=== PATIENT | female | born 1940 | race Caucasian/White ===

== ENCOUNTER → 2016-05-11 | Outpatient (CLI) | payer OTHER ==
--- NOTE | 2016-05-11 17:02 | MR ---
MRI of the Lumbar Spine (Without Contrast) at 1023 hours Clinical Indications: Low back pain. M54.5. Technique: Sagittal and axial T1 and T2 and sagittal STIR MR sequences of the lumbar spine, without contrast. Axial imaging from T12-S1. Findings: Lumbar vertebral bodies are of normal height, without compression fractures. Conus medull asya appears normal and ends at L2. Moderate levoscoliosis. T10-T11: Sagittal images demonstrate moderate degenerative disk disease and disk bulge resulting in mild central canal stenosis and mild right neural foraminal stenosis. T11-T12: Sagittal images demonstrate no central canal stenosis. T12-L1: Mild degenerative disk disease and mild disk bulge, with mild bilateral facet arthropathy. No central canal or neural foraminal stenosis. L1-L2: Moderate degenerative disk disease, with central 3-mm disk herniation and mild bilateral face t arthropathy, resulting in mild central canal stenosis, without neural foraminal stenosis. L2-L3: A 3-mm central disk herniation, protrusion, and mild bilateral facet arthropathy, without becky tral canal or neural foraminal stenosis. L3-L4: Moderate degenerative disk disease, moderate bilateral facet arthropathy, and circumferential disk bulge resulting in mild to moderate right neural foraminal stenosis and mild central canal sten osis. L4-L5: Severe bilateral facet arthropathy, mild degenerative disk disease, disk bulge, and degenerat ted anterolisthesis resulting in moderate central canal stenosis and mild bilateral neural foraminal stenosis. L5-S1: Mild degenerative disk disease and severe bilateral facet arthropathy resulting in moderate t o severe left neural foraminal stenosis, without central canal stenosis. Impressions 1. L4-L5: Moderate central canal stenosis secondary to severe bilateral facet arthropathy, mild deg enerative disk disease, disk bulge, and degenerative anterolisthesis. 2. Moderate levoscoliosis. 3. Please see above findings at specific disk levels.
== END ==
LOC: FIMAGING 10:03
PROVIDERS: ATTEND Physical Medicine & Rehabilitation
DX: M48.06 Spinal stenosis, lumbar region (principal); M51.36 Other intervertebral disc degeneration, lumbar region; M43.16 Spondylolisthesis, lumbar region; M41.86 Other forms of scoliosis, lumbar region

== ENCOUNTER → 2016-05-11 | Outpatient (CLI) | payer OTHER ==
--- NOTE | 2016-05-11 13:21 | DX ---
PA and lateral chest. May 11, 2016. Clinical History: Fever and fatigue. Cough. Comparison Study: February 04, 2016.. Findings: Interval resolution of small bilateral pleural effusions from prior study. No focal infiltr ate or pleural effusion currently. Cardiac silhouette is normal.. Marked lower thoracic dextroscoliosis. Healed fracture of the lateral aspect of the right seventh rib , unchanged.. Impression: Interval resolution of small bilateral pleural effusions. Negative chest.
== END ==
LOC: BMCIMAGING 12:32
PROVIDERS: ATTEND Internal Medicine
DX: J90 Pleural effusion, not elsewhere classified (principal); R50.9 Fever, unspecified; R53.83 Other fatigue

== ENCOUNTER → 2016-06-10 | Outpatient (CLI) | payer OTHER | LOC: FIMAGING 15:49 | PROVIDERS: ATTEND Internal Medicine Rheumatology | DX: R51 Headache (principal); R50.9 Fever, unspecified; R09.89 Other specified symptoms and signs involving the circulatory and respiratory systems ==

== ENCOUNTER 2016-07-18 11:59 | Emergency (ER) | payer OTHER ==
--- NOTE | 2016-07-18 12:24 | CPEKG ---
Heart Rate: 73 RR Interval: 822 P-R Interval: 148 QRSD Interval: 74 QT Interval: 428 QTC Interval: 472 P [place]: 57 QRS [place]: 16 T Wave [place]: 67 EKG Severity - BORDERLINE ECG - EKG Impression: SINUS RHYTHM EKG Impression: BORDERLINE T WAVE ABNORMALITIES Electronically Signed By: William Louis 18-Jul-2016 12:53:07
--- NOTE | 2016-07-18 12:40 | EDPHY ---
H & P Time Seen by Provider: 07/18/16 12:39 HPI/ROS: CHIEF COMPLAINT: Left-sided chest pain HISTORY OF PRESENT ILLNESS: This 75-year-old woman presents with left-sided chest discomfort since Monday evening almost 48 hours ago. She describes it as being constant and worse with a deep breath and worse with swallowing. It is not associated with cough or shortness of breath or syncope. Does not radiate. Symptoms mild and presents for evaluation since it is "not going away. " REVIEW OF SYSTEMS: Eye: no change in vision ENT: no sore throat, runny nose for several months Cardiac: HPI Pulmonary: no cough or SOB Abdomen: no vomiting, diarrhea, abdominal pain Musculoskeletal: no back pain Skin: Has a couple areas of ring warm diagnosed recently Neuro: no headache Constitutional: no fever : no urinary symptoms A comprehensive 10 point review of systems is otherwise negative aside from elements mentioned in the history of present illness. No recent travel or immobilization. PAST MEDICAL HISTORY: Includes rheumatoid arthritis and diet-controlled diabetes. TIA in 2006. Hernia surgery. Gastroesophageal reflux. Social history: Nonsmoker, General Appearance: Alert and conversant, cooperative. Eyes: No scleral icterus. ENT, Mouth: Normal mucous membranes. Respiratory: Normal respiratory effort, breath sounds equal, lungs are clear to auscultation. Cardiovascular: Regular rate and rhythm. Gastrointestinal: Abdomen is soft and non tender. Neurological: Alert and oriented x3. Normally conversant. Face symmetric, normal movement and sensation in all extremities. Skin: No petechiae or purpura Musculoskeletal: Trace peripheral edema which is chronic since her rituximab injections but no calf tenderness. Psychiatric: Not agitated. Emergency Department course/MDM: Much more likely gastrointestinal given her worsening with swallowing. Think that acute coronary syndrome is less likely, especially with negative troponin after 2 days of symptoms. 1415: Re-evaluated. Symptoms better. I do not think it is likely that she has an acute emergent medical condition at this time. Patient states she is comfortable with discharge and symptomatic management. Smoking Status: Former smoker Constitutional: Initial Vital Signs Temperature (C) 36.6 C 07/18/16 12:00 Heart Rate 76 07/18/16 12:00 Respiratory Rate 18 07/18/16 12:00 Blood Pressure 133/80 H 07/18/16 12:00 O2 Sat (%) 95 07/18/16 12:00 O2 Delivery Mode Room Air O2 (L/minute) 2 Allergies/Adverse Reactions: acetaminophen [From Vicodin] Allergy (Intermediate, Verified 07/18/16 12:01) Rash codeine [Codeine] Allergy (Intermediate, Verified 07/18/16 12:01) Rash hydrocodone [Hydrocodone] Allergy (Intermediate, Verified 07/18/16 12:01) Itching hydrocodone bitartrate [From Vicodin] Allergy (Intermediate, Verified 07/18/16 12:01) Rash latex [Latex] Allergy (Intermediate, Verified 07/18/16 12:01) Hives levofloxacin [From Levaquin] Allergy (Intermediate, Verified 07/18/16 12:01) Other-Enter Comments nitrofurantoin [From Macrobid] Allergy (Intermediate, Verified 07/18/16 12:01) Other-Enter Comments nitrofurantoin macrocrystalline [From Macrobid] Allergy (Intermediate, Verified 07/18/16 12:01) Other-Enter Comments oxycodone HCl [From Percocet] Allergy (Intermediate, Verified 07/18/16 12:01) Itching propoxyphene napsylate [From Darvocet-N 100] Allergy (Intermediate, Verified 12:01) Itching clarithromycin Allergy (Mild, Verified 07/18/16 12:01) Other-Enter Comments Sulfa (Sulfonamide Antibiotics) Allergy (Unknown, Verified 07/18/16 12:01) Unknown GLUTEN Allergy (Intermediate, Uncoded 08/09/11 12:08) Other-Enter Comments ISONIAZIDE Allergy (Intermediate, Uncoded 08/09/11 12:08) Other-Enter Comments MILK PROTEIN Allergy (Intermediate, Uncoded 08/09/11 12:02) Other-Enter Comments HAYFEVER Allergy (Mild, Uncoded 08/09/11 12:08) Other-Enter Comments Home Medications: Medication Instructions Recorded DULoxetine [Cymbalta 60 MG (*)] 60 mg PO DAILY 08/12/11 ESOMEPRAZOLE MAG TRIHYDRATE 40 mg PO DAILY 08/12/11 [NEXIUM] ESTRADIOL [VAGIFEM] 25 mcg VG .3X/WEEK 08/12/11 Simvastatin [Zocor 10 mg] 10 mg PO DAILY 08/12/11 Methotrexate Sodium [Methotrexate] 10 mg PO Q7D 10/17/14 Aspirin EC [Aspirin EC 81 mg (*)] 81 mg PO DAILY 01/29/16 Leflunomide [Arava 20 mg (*)] 20 mg PO DAILY 01/29/16 riTUXimab [Rituxan 500mg (*)] 0 mg IV 07/18/16 traMADol [Ultram 50 mg (*)] 50 mg PO Q4 07/18/16 Medical Decision Making - Diagnostics EKG Interpretation: 12-lead EKG interpreted by me; official reading is in trace master. My interpretation is sinus rhythm, rate 73, nonspecific T-wave flattening. Imaging: Chest x-ray viewed independently by myself shows scoliosis but no acute changes from previous. Differential Diagnosis: Differential diagnosis considered for chest pain including but not limited to myocardial ischemia, aortic dissection, pericarditis, pulmonary embolus, chest wall pain, pleural inflammation and pulmonary infectious causes. - Data Points Laboratory Results: Laboratory Results 07/18/16 12:27 07/18/16 12:27 07/18/16 07/18/16 07/18/16 12:27 12: 12:25 WBC 5.41 10^3/uL 10^3/uL (3.80-9.50) RBC 4.28 10^6/uL 10^6/uL (4.18-5.33) Hgb 13.4 g/dL g/dL (12.6-16.3) Hct 41.2 % % (38.0-47.0) MCV 96.3 fL fL (81.5-99.8) MCH 31.3 pg pg (27.9-34.1) MCHC 32.5 g/dL g/dL (32.4-36.7) RDW 13.2 % % (11.5-15.2) Plt Count 169 10^3/uL 10^3/uL (150-400) MPV 12.0 fL H fL (8.7-11.7) Neut % (Auto) 73.0 % % (39.3-74.2) Lymph % (Auto) 15.3 % % (15.0-45.0) [place] % (Auto) 9.6 % % (4.5-13.0) Eos % (Auto) 1.5 % % (0.6-7.6) Baso % (Auto) 0.4 % % (0.3-1.7) Nucleat RBC Rel Count 0.0 % % (0.0-0.2) Absolute Neuts (auto) 3.95 10^3/uL 10^3/uL (1.70-6.50) Absolute Lymphs (auto) 0.83 10^3/uL L 10^3/uL (1.00-3.00) Absolute Monos (auto) 0.52 10^3/uL 10^3/uL (0.30-0.80) Absolute Eos (auto) 0.08 10^3/uL 10^3/uL (0.03-0.40) Absolute Basos (auto) 0.02 10^3/uL 10^3/uL (0.02-0.10) Absolute Nucleated RBC 0.00 10^3/uL 10^3/uL (0-0.01) Immature Gran % 0.2 % % (0.0-1.1) Immature Gran # 0.01 10^3/uL 10^3/uL (0.00-0.10) D-Dimer 0.44 ug/mLFEU ug/mLFEU (0.00-0.50) Sodium 140 mEq/L mEq/L (134-144) Potassium 3.8 mEq/L mEq/L (3.5-5.2) Chloride 106 mEq/L mEq/L (97-110) Carbon Dioxide 25 mEq/l mEq/l (22-31) Anion Gap 9 mEq/L mEq/L (8-16) BUN 31 mg/dL H mg/dL (7-23) Creatinine 0.8 mg/dL mg/dL (0.6-1.0) Estimated GFR > 60 Glucose 126 mg/dL H mg/dL (70-100) Calcium 9.0 mg/dL mg/dL (8.5-10.4) Troponin I < 0.012 ng/mL ng/mL (0-0.034) Medications Given: Discontinued Medications Al Hydroxide/Mg Hydroxide (Maalox Susp) 30 ml PO ONCE ONE Stop: 07/18/16 12:51 Last Admin: 07/18/16 13:03 Dose: 30 ml Hyoscyamine Sulfate (Levsin, Hyomax-Sl) 0.25 mg PO ONCE ONE Stop: 07/18/16 12:51 Last Admin: 07/18/16 13:03 Dose: 0.25 mg Lidocaine (Lidocaine 2% Viscous) 15 ml PO ONCE ONE Stop: 07/18/16 12:51 Last Admin: 07/18/16 13:03 Dose: 15 ml Departure - Departure Disposition: Home, Routine, Self-Care Clinical Impression: Chest pain Qualifiers: Chest pain type: unspecified Qualified Code(s): R07.9 - Chest pain, unspecified Condition: Good Instructions: Chest Pain (ED), Gastroesophageal Reflux Disease (ED) Referrals: Austen Murrell MD [Primary Care Provider] - As per Instructions
[2016-07-18] MEDS ORDERED: LIDOCAINE 2% VISCOUS 15 ML UDCUP PO ONE (12:50)
[2016-07-18] MEDS ORDERED: HYOSCYAMINE SULFATE 0.125 MG TAB PO ONE (12:50)
[2016-07-18] MEDS ORDERED: MAG HYDROX/AL HYDROX/SIMETH 30 ML UDCUP PO ONE (12:50)
[2016-07-18 12:56] LABS: % IMMATURE GRANULYOCYTES 0.2 % (0.0-1.1); ABSOLUTE IMMATURE GRANULOCYTES 0.01 10^3/uL (0.00-0.10); ADD DIFF? NO; ADD MORPH? NO; ADD SCAN? NO; ATYPICAL LYMPHOCYTE FLAG 0 (0-99); FRAGMENT RBC FLAG 0 (0-99); HEMATOCRIT 41.2 % (38.0-47.0); HEMOGLOBIN 13.4 g/dL (12.6-16.3); LEFT SHIFT FLG 0 (0-99); LIPEMIA HEMOLYSIS FLAG 80 (0-99); MEAN CELL HEMOGLOBIN 31.3 pg (27.9-34.1); MEAN CELL HEMOGLOBIN CONCENTR. 32.5 g/dL (32.4-36.7); MEAN CELL VOLUME 96.3 fL (81.5-99.8); PLATELET CLUMPS FLAG 10 (0-99); PLATELET COUNT 169 10^3/uL (150-400); RED BLOOD CELL COUNT 4.28 10^6/uL (4.18-5.33); RED CELL DISTRIBUTION WIDTH 13.2 % (11.5-15.2)
[2016-07-18 13:03] LABS: ANION GAP 9 mEq/L (8-16); CARBON DIOXIDE 25 mEq/l (22-31); CHLORIDE 106 mEq/L (97-110); CREATININE 0.8 mg/dL (0.6-1.0); GLOMERULAR FILTRATION RATE > 60; GLUCOSE 126 mg/dL (70-100); POTASSIUM 3.8 mEq/L (3.5-5.2); SODIUM 140 mEq/L (134-144)
[2016-07-18 13:14] LABS: TROPONIN I < 0.012 ng/mL (0-0.034)
[2016-07-18 14:27] VITALS: BP 118/89; PULSE 70; RESP 20; TEMP 98.4; O2SAT 95
== END 2016-07-18 14:32 | disposition home or self-care (01) ==
DX: R07.89 Other chest pain (principal); E11.9 Type 2 diabetes mellitus without complications; Z86.73 Personal history of transient ischemic attack (TIA), and cerebral infarction without residual deficits; Z87.891 Personal history of nicotine dependence; Z91.040 Latex allergy status; Z79.82 Long term (current) use of aspirin

== ENCOUNTER → 2016-08-12 | Outpatient (CLI) | payer OTHER | LOC: BMCIMAGING 11:10 | PROVIDERS: ATTEND Internal Medicine | DX: R07.81 Pleurodynia (principal); Z87.81 Personal history of (healed) traumatic fracture ==

== ENCOUNTER → 2016-08-24 | Outpatient (CLI) | payer OTHER | LOC: FIMAGING 14:15 | PROVIDERS: ATTEND Internal Medicine | DX: Z03.89 Encounter for observation for other suspected diseases and conditions ruled out (principal) ==

== ENCOUNTER 2017-02-26 09:38 | Emergency (ER) | payer OTHER ==
[2017-02-26] MEDS ORDERED: ONDANSETRON 4 MG/2 ML VIAL IVP ONE (10:27)
[2017-02-26 11:27] LABS: PLATELET COUNT 152 10^3/uL (150-400)
--- NOTE | 2017-02-26 11:50 | EDPHY ---
H & P Stated Complaint: l flank pain last night/saw flecks in urine now feeeling better Time Seen by Provider: 02/26/17 09:40 HPI/ROS: Chief complaint: Left flank pain History of present illness: This is a 76-year-old female who presents to the emergency department for left flank pain. She reports the onset of symptoms last night. She reports the pain was more intense last night but has slowly soft and is now only a mild soreness. She does state this morning jacques of blood in her urine. She then saw a small black dot in her urine. She has had a kidney stone before and this feels similar, she is wondering if she has passed a stone. She denies other associated signs or symptoms including no fevers, no vomiting, no dysuria, no frequency, no hesitancy, no abdominal pain, no bowel changes. Review of systems: A 10 point review of systems was obtained and other than described above was negative - Personal History Current Tetanus/Diphtheria Vaccine: Yes - Medical/Surgical History Hx Asthma: Yes Hx Chronic Respiratory Disease: No Hx Diabetes: Yes Hx Cardiac Disease: Yes Hx Renal Disease: No Hx Cirrhosis: No Hx Alcoholism: No Hx HIV/AIDS: No Hx Splenectomy or Spleen Trauma: No Other PMH: PMH: RA, immunocompromised, diet controlled diabetes, acid reflux, TIA in 2006;. PSH: hernia repair x 2,Lt finger repair - Social History Smoking Status: Former smoker - Physical Exam Exam: General Appearance: Alert, nontoxic. Eyes: Pupils equal and round no pallor or injection. ENT, Mouth: Mucous membranes moist. Respiratory: There are no retractions, lungs are clear to auscultation. Cardiovascular: Regular rate and rhythm. Gastrointestinal: Abdomen is soft and non tender, no masses, bowel sounds normal. Genitourinary: No CVA tenderness Neurological: Alert and oriented x4. Strength and sensation intact and symmetrical. Ambulating well on her own. Skin: Warm and dry, no rashes. Musculoskeletal: Neck is supple non tender. Extremities are symmetrical, full range of motion. Psychiatric: Patient is oriented X 3, there is no agitation. Constitutional: Initial Vital Signs Temperature (C) 36.5 C 02/26/17 09:47 Heart Rate 76 02/26/17 09:47 Respiratory Rate 16 02/26/17 09:47 Blood Pressure 157/130 H 02/26/17 09:47 O2 Sat (%) 95 02/26/17 09:47 O2 Delivery Mode Room Air Allergies/Adverse Reactions: acetaminophen [From Vicodin] Allergy (Intermediate, Verified 02/26/17 09:45) Rash codeine [Codeine] Allergy (Intermediate, Verified 02/26/17 09:45) Rash hydrocodone [Hydrocodone] Allergy (Intermediate, Verified 02/26/17 09:45) Itching hydrocodone bitartrate [From Vicodin] Allergy (Intermediate, Verified 02/26/17 09:45) Rash latex [Latex] Allergy (Intermediate, Verified 02/26/17 09:45) Hives levofloxacin [From Levaquin] Allergy (Intermediate, Verified 02/26/17 09:45) Other-Enter Comments nitrofurantoin [From Macrobid] Allergy (Intermediate, Verified 02/26/17 09:45) Other-Enter Comments nitrofurantoin macrocrystalline [From Macrobid] Allergy (Intermediate, Verified 02/26/17 09:45) Other-Enter Comments oxycodone HCl [From Percocet] Allergy (Intermediate, Verified 02/26/17 09:45) Itching propoxyphene napsylate [From Darvocet-N 100] Allergy (Intermediate, Verified 09/07 09:45) Itching clarithromycin Allergy (Mild, Verified 02/26/17 09:45) Other-Enter Comments Sulfa (Sulfonamide Antibiotics) Allergy (Unknown, Verified 02/26/17 09:45) Unknown GLUTEN Allergy (Intermediate, Uncoded 08/09/11 12:08) Other-Enter Comments ISONIAZIDE Allergy (Intermediate, Uncoded 08/09/11 12:08) Other-Enter Comments MILK PROTEIN Allergy (Intermediate, Uncoded 08/09/11 12:02) Other-Enter Comments HAYFEVER Allergy (Mild, Uncoded 08/09/11 12:08) Other-Enter Comments Home Medications: Medication Instructions Recorded DULoxetine [Cymbalta 60 MG (*)] 60 mg PO DAILY 08/12/11 ESOMEPRAZOLE MAG TRIHYDRATE 40 mg PO DAILY 08/12/11 [NEXIUM] ESTRADIOL [VAGIFEM] 25 mcg VG .3X/WEEK 08/12/11 Aspirin EC [Aspirin EC 81 mg (*)] 81 mg PO DAILY 01/29/16 Leflunomide [Arava 20 mg (*)] 20 mg PO DAILY 01/29/16 riTUXimab [Rituxan 500mg (*)] 0 mg IV 07/18/16 Medical Decision Making - Diagnostics Imaging: Discussed imaging studies w/ scallop binder Radiologist ED Course/Re-evaluation: Patient seen under the supervision of my primary supervising physician Dr. Grace Hernandes. Patient presents to the emergency department for left flank pain with hematuria. Symptoms have been improving and almost resolved on presentation. CT scan is negative for acute findings. There is some blood in the urine. Blood studies are unremarkable. I suspect she did pass a stone. I believe she is appropriate for discharge home. Home care is discussed. She is asked to follow up with Urology for recheck and referral information is provided. Return precautions are given. Patient voiced understanding and agreement with plan. Of note the 1st urinalysis in the system for this visit was a urine sample patient brought in on her own asked to be tested, the 2nd urine sample is one obtained here as a clean-catch midstream Differential Diagnosis: Included but not limited to urinary tract infection, nephrolithiasis, musculoskeletal pain, gastritis, peptic ulcer disease, diverticulitis - Data Points Laboratory Results: Laboratory Results 02/26/17 11:10 02/26/17 11:10 Microbiology Results: MICROBIOLOGY 02/26/17 10:40 Unspecified Urine Culture - Preliminary Three [place] Types Strep Agalactiae Group B Medications Given: Discontinued Medications Ketorolac Tromethamine (Toradol) 15 mg IVP EDNOW ONE Stop: 02/26/17 12:11 Last Admin: 02/26/17 12:35 Dose: 15 mg Ondansetron HCl (Zofran) 4 mg IVP EDNOW ONE Stop: 02/26/17 10:28 Last Admin: 02/26/17 11:18 Dose: 4 mg Departure - Departure Disposition: Home, Routine, Self-Care Clinical Impression: Flank pain Hematuria Qualifiers: Hematuria type: unspecified type Qualified Code(s): R31.9 - Hematuria, unspecified Condition: Good Instructions: Hematuria (ED), Flank Pain (ED) Additional Instructions: Follow-up with your primary care doctor for recheck If symptoms worsen or new symptoms develop return to the emergency room for recheck Referrals: Austen Murrell MD [Primary Care Provider] - As per Instructions Pranay Nunez MD [Medical Doctor] - As per Instructions
[2017-02-26] MEDS ORDERED: KETOROLAC 15 MG/1 ML SDV IVP ONE (12:10)
[2017-02-26 13:00] VITALS: BP 140/73; PULSE 69; RESP 18; TEMP 97.9; O2SAT 96
== END 2017-02-26 13:00 | disposition home or self-care (01) ==
DX: R31.9 Hematuria, unspecified (principal); J45.909 Unspecified asthma, uncomplicated; E11.9 Type 2 diabetes mellitus without complications; Z79.82 Long term (current) use of aspirin; Z86.73 Personal history of transient ischemic attack (TIA), and cerebral infarction without residual deficits; Z87.891 Personal history of nicotine dependence; Z91.040 Latex allergy status
CPT/HCPCS: 74176; 96374; 96375; 99285; J1885; J2405

== ENCOUNTER → 2017-03-08 | Outpatient (CLI) | payer OTHER ==
[~2017-03-08] MED LIST: GADOBUTROL 10 ML VIAL IVP ONE
== END ==
LOC: FIMAGING 09:03
PROVIDERS: ATTEND Internal Medicine Gastroenterology
DX: Z03.89 Encounter for observation for other suspected diseases and conditions ruled out (principal); K86.2 Cyst of pancreas; N28.1 Cyst of kidney, acquired
CPT/HCPCS: 74183; 76641; A9585

== ENCOUNTER 2017-03-28 13:42 | Emergency (ER) | payer OTHER ==
[2017-03-28 13:57] VITALS: RESP 18; TEMP 97.9
--- NOTE | 2017-03-28 14:15 | EDPHY ---
H & P Stated Complaint: MISSED A STEP FELL ONTO HANDS AND KNEES/ R WRIST/ANKLE PAIN Time Seen by Provider: 03/28/17 14:05 HPI/ROS: CHIEF COMPLAINT: Bilateral knee, right knee, right wrist, right ankle , left elbow pain post mechanical fall HISTORY OF PRESENT ILLNESS: 76-year-old female arrives via private vehicle stating that she was walking, sustained a mechanical fall falling forward landing on her bilateral knees, complaining bilateral knee pain. She also rolled her right ankle and is complaining of right wrist pain as well. She is able to bear weight albeit with pain. She denies peripheral paresthesia, weakness, numbness. Denies head or C-spine pain or injury. Denies alcohol or drug use. Denies chest pain. Denies straddle injury. Denies abdominal pain. Denies dyspnea. This was purely a mechanical incident, non syncope. PRIMARY CARE PROVIDER:Dr. Austen Murrell REVIEW OF SYSTEMS: A ten point review of systems was performed and is negative with the exception of the items mentioned in the HPI PAST MEDICAL/SURGICAL HISTORY: Rheumatoid arthritis, on immunosuppressants. TIA. SOCIAL HISTORY: . denies alcohol use at time of incident PHYSICAL EXAM 1) GENERAL: Well-developed, well-nourished, alert and oriented. Appears to be in no acute distress. Answering questions appropriately. 2) HEAD: Normocephalic, atraumatic 3) HEENT: Pupils equal, round, reactive to light bilaterally. Negative Horners. Nasopharynx, oropharynx, clear. No deformity or angulation of nose. No septal hematoma. No rhinorrhea. No oral trauma. Ears bilaterally with normal tympanic membranes. No hemotympanum. No fluid or blood in the external auditory canal. No raccoon eyes. No King sign. . 4) NECK: No cervical collar is on. Posterior cervical spine is nontender, no stepoff, no effusion. Full range of motion which does not elicit any midline cervical spine pain, no posterior midline tenderness, no step-off. 5) LUNGS: Clear to auscultation bilaterally, no wheezes, no rhonchi, no retractions. No obvious signs of trauma. No chest wall pain. No flaring, no grunting. Moving symmetrically. No crepitus. 6) HEART: Regular rate and rhythm, 7) ABDOMEN: No guarding, no rebound, no focal tenderness, no peritoneal signs, no signs of trauma, no ecchymosis 8) MUSCULOSKELETAL: Right upper extremity: Right shoulder is tender to palpation with no visible signs of trauma. No crepitus. Reproducible pain with range of motion. Right wrist is tender to palpation distal radius. No deformity no angulation. Intact skin. Radial ulnar median nerve function intact. Left upper extremity: Tender to palpation left elbow. No visible signs of trauma, no focal areas of discomfort. Right lower extremity: Tender to palpation right knee with no visible signs of trauma. Distal DP PT pulses present and brisk with soft compartments brisk capillary refill. Left lower extremity: Tender to palpation left knee with abrasion.Distal DP PT pulses present and brisk with soft compartments brisk capillary refill. 9) BACK: No midline vertebral tenderness, no fluctuance, no step-off, no obvious trauma, no visual or palpable abnormality. 10) SKIN: No laceration. DIFFERENTIAL DIAGNOSIS: in no particular include but limited to fracture, sprain, dislocation, strain - Personal History Current Tetanus/Diphtheria Vaccine: Yes - Medical/Surgical History Hx Asthma: Yes Hx Chronic Respiratory Disease: No Hx Diabetes: Yes Hx Cardiac Disease: Yes Hx Renal Disease: No Hx Cirrhosis: No Hx Alcoholism: No Hx HIV/AIDS: No Hx Splenectomy or Spleen Trauma: No Other PMH: PMH: RA, immunocompromised, diet controlled diabetes, acid reflux, TIA in 2006;. PSH: hernia repair x 2,Lt finger repair - Social History Smoking Status: Never smoked Constitutional: Initial Vital Signs Temperature (C) 36.6 C 03/28/17 13:54 Heart Rate 73 03/28/17 13:54 Respiratory Rate 18 03/28/17 13:54 Blood Pressure 139/66 H 03/28/17 13:54 O2 Sat (%) 92 03/28/17 13:54 O2 Delivery Mode Room Air Allergies/Adverse Reactions: acetaminophen [From Vicodin] Allergy (Intermediate, Verified 03/28/17 13:53) Rash codeine [Codeine] Allergy (Intermediate, Verified 03/28/17 13:53) Rash hydrocodone [Hydrocodone] Allergy (Intermediate, Verified 03/28/17 13:53) Itching hydrocodone bitartrate [From Vicodin] Allergy (Intermediate, Verified 03/28/17 13:53) Rash latex [Latex] Allergy (Intermediate, Verified 03/28/17 13:53) Hives levofloxacin [From Levaquin] Allergy (Intermediate, Verified 03/28/17 13:53) Other-Enter Comments nitrofurantoin [From Macrobid] Allergy (Intermediate, Verified 03/28/17 13:53) Other-Enter Comments nitrofurantoin macrocrystalline [From Macrobid] Allergy (Intermediate, Verified 03/28/17 13:53) Other-Enter Comments oxycodone HCl [From Percocet] Allergy (Intermediate, Verified 03/28/17 13:53) Itching propoxyphene napsylate [From Darvocet-N 100] Allergy (Intermediate, Verified 09/07 13:53) Itching clarithromycin Allergy (Mild, Verified 03/28/17 13:53) Other-Enter Comments Sulfa (Sulfonamide Antibiotics) Allergy (Unknown, Verified 03/28/17 13:53) Unknown GLUTEN Allergy (Intermediate, Uncoded 03/28/17 13:53) Other-Enter Comments ISONIAZIDE Allergy (Intermediate, Uncoded 03/28/17 13:53) Other-Enter Comments MILK PROTEIN Allergy (Intermediate, Uncoded 03/28/17 13:53) Other-Enter Comments HAYFEVER Allergy (Mild, Uncoded 03/28/17 13:53) Other-Enter Comments Home Medications: Medication Instructions Recorded DULoxetine [Cymbalta 60 MG (*)] 60 mg PO DAILY 08/12/11 ESOMEPRAZOLE MAG TRIHYDRATE 40 mg PO DAILY 08/12/11 [NEXIUM] ESTRADIOL [VAGIFEM] 25 mcg VG .3X/WEEK 08/12/11 Aspirin EC [Aspirin EC 81 mg (*)] 81 mg PO DAILY 01/29/16 Leflunomide [Arava 20 mg (*)] 20 mg PO DAILY 01/29/16 riTUXimab [Rituxan 500mg (*)] 0 mg IV 07/18/16 Medical Decision Making - Diagnostics Imaging Results: Imaging Impressions Ankle X-Ray 03/28/17 14:25 Impression: 1. Nondisplaced fracture distal right fibula. Knee X-Ray 03/28/17 14:25 Impression: Normal bilateral knee series. Knee X-Ray 12/05/17 14:25 Impression: Normal bilateral knee series. Shoulder X-Ray 03/28/17 14:25 Impression: No acute osseous abnormality seen about the right shoulder. 2. Progression of degenerative joint disease at the glenohumeral joint and AC joints. 3. Relative elevation of the right humeral head in the glenoid fossa just underlying the acromion. This can be seen with rotator cuff tear. Wrist X-Ray 03/28/17 14:25 Impression: 1. No acute osseous abnormality seen about the right wrist. 2. Degenerative joint disease lateral wrist as detailed above. 3. Erosion distal ulna at the radial ulnar joint level. This is nonspecific but can be seen with underlying gout or rheumatoid arthritis. Findings discussed with PAWAN Caicedo by Dr. Palomino at 16:32 hour, 03/28/2017. Elbow X-Ray 03/28/17 14:30 Impression: Normal left elbow series. Images reviewed myself Procedures: Procedure: Fracture treatment. The patient had x-rays taken and I confirmed that the patient had a fractured distal fibula . A stirrup anklesplint was applied by ER watch repair technician. After application of the splint I returned and re-examined the patient. The splint was adequately immobilizing the joint and distal to the splint the patient's circulation and sensation were intact. Patient shows no signs of compartment syndrome. Was given orthopedic precautions. ED Course/Re-evaluation: Care of patient under supervision of primary supervising physician Dr Acosta. Patient was re-evaluated with serial examinations. Reviewed her imaging studies , she is noted to have a nondisplaced fracture of the lateral malleolus. She was initially placed in a Beaver boot however notes that this increased her discomfort and she felt more unsteady on her feet. Subsequently this was removed and she was placed in a stirrup splint. We discussed the risks and benefits of crutches as she is able to ambulate without assistance and because of the potential increased risk of fall with crutches I recommended against this. She agrees with this. At 4:30 p.m. she was observed ambulating without assistance. I have offered admission however she declines this. She feels safe being discharged home with her . She is agreeable with this. I have recommended she follow up with Orthopedics. She has been given this follow-up information with [facility] orthopedics. Usual customary orthopedic precautions instructions provided. Departure - Departure Disposition: Home, Routine, Self-Care Clinical Impression: Knee sprain, bilateral Right wrist sprain Qualifiers: Encounter type: initial encounter Qualified Code(s): S63.501A - Unspecified sprain of right wrist, initial encounter Ankle fracture, right Qualifiers: Encounter type: initial encounter Fracture type: closed Qualified Code(s): S82.891A - Other fracture of right lower leg, initial encounter for closed fracture Sprain of right shoulder Qualifiers: Encounter type: initial encounter Shoulder sprain type: unspecified sprain Qualified Code(s): S43.401A - Unspecified sprain of right shoulder joint, initial encounter Condition: Good Instructions: Ankle Fracture (ED), Shoulder Sprain (ED), Knee Sprain (ED) Additional Instructions: Return to the ER immediately if you experience discoloration, have worsening pain, numbness, tingling, or any other symptoms that concern you. If you received x-rays in the emergency department today, be advised, that ligamentous , tendon, muscular, and other non-bony injury cannot be fully ruled out. Try to keep your affected extremity elevated above the level of your chest, and keep cold packs on the affected area, for the next 48 hours. Referrals: Nir Lux MD [Medical Doctor] - 2-3 days, call for appt. (Dr. Lux is orthopedic doctor [facility])
[2017-03-28 17:06] VITALS: BP 154/84; PULSE 70; O2SAT 93
== END 2017-03-28 17:11 | disposition home or self-care (01) ==
DX: S82.891A Other fracture of right lower leg, initial encounter for closed fracture (principal); S63.501A Unspecified sprain of right wrist, initial encounter; S83.91XA Sprain of unspecified site of right knee, initial encounter; S83.92XA Sprain of unspecified site of left knee, initial encounter; S43.401A Unspecified sprain of right shoulder joint, initial encounter; J45.909 Unspecified asthma, uncomplicated; E11.9 Type 2 diabetes mellitus without complications; Z91.040 Latex allergy status; Z79.82 Long term (current) use of aspirin; W18.39XA Other fall on same level, initial encounter; Y99.8 Other external cause status; Y93.01 Activity, walking, marching and hiking
CPT/HCPCS: 73030; 73080; 73110; 73564; 73610; 99284; L4350

== ENCOUNTER → 2017-05-13 | Outpatient (CLI) | payer OTHER | LOC: BMCIMAGING 13:15 | PROVIDERS: ATTEND Emergency Medicine | DX: R05 Cough (principal) ==

== ENCOUNTER → 2017-06-07 | Outpatient (CLI) | payer OTHER | LOC: FIMAGING 16:00 | PROVIDERS: ATTEND Internal Medicine Rheumatology | DX: R05 Cough (principal) ==

== ENCOUNTER → 2017-06-08 | Outpatient (CLI) | payer OTHER | LOC: FIMAGING 13:09 | PROVIDERS: ATTEND Otolaryngology | DX: R51 Headache (principal) ==

== ENCOUNTER → 2017-08-08 | Outpatient (CLI) | payer OTHER | LOC: FIMAGING 15:45 | PROVIDERS: ATTEND Physical Medicine & Rehabilitation | DX: M41.86 Other forms of scoliosis, lumbar region (principal); M48.061 Spinal stenosis, lumbar region without neurogenic claudication; M51.16 Intervertebral disc disorders with radiculopathy, lumbar region ==

== ENCOUNTER → 2017-08-11 | Outpatient (CLI) | payer OTHER | LOC: FIMAGING 15:13 | DX: R05 Cough (principal); J45.909 Unspecified asthma, uncomplicated; R06.89 Other abnormalities of breathing; E66.9 Obesity, unspecified; M41.85 Other forms of scoliosis, thoracolumbar region ==

== ENCOUNTER → 2017-12-27 | Outpatient (CLI) | payer OTHER | LOC: FIMAGING 10:26 | PROVIDERS: ATTEND Otolaryngology | DX: H93.A1 Pulsatile tinnitus, right ear (principal) ==

== ENCOUNTER → 2018-01-08 | Outpatient (CLI) | payer OTHER | LOC: BMCIMAGING 15:02 | PROVIDERS: ATTEND Urology | DX: N20.0 Calculus of kidney (principal) ==

== ENCOUNTER 2018-01-21 14:31 | Emergency (ER) | payer OTHER ==
--- NOTE | 2018-01-21 15:15 | EDPHY ---
H & P Time Seen by Provider: 01/21/18 14:52 HPI/ROS: CHIEF COMPLAINT: Blood in the urine and dysuria HISTORY OF PRESENT ILLNESS: Known history of renal colic with recent x-ray on 01/[address] Jay office showing maximum 3 mm stones in the left side. Patient has had darker urine for the past 3 days and intermittent dysuria and then she noticed blood in her urine today. Associated with some intermittent left flank pain feels similar previous kidney stones. Not better worse with movement. Denies fever or chills. No vomiting or diarrhea. Symptoms mild now, not severe. REVIEW OF SYSTEMS: Eye: no change in vision ENT: Uses hearing aids, no change Cardiac: no chest pain or syncope Pulmonary: Recent URI with cough and wheezing and some runny nose, improving Abdomen: no vomiting, diarrhea, abdominal pain Musculoskeletal: Chronic left hip pain Skin: no rash Neuro: no headache Constitutional: no fever : HPI A comprehensive 10 point review of systems is otherwise negative aside from elements mentioned in the history of present illness. PAST MEDICAL HISTORY: Includes asthma with recent URI, rheumatoid arthritis, diabetes, acid reflux, TIA in 2006. Hernia repair. Renal colic. Social history: Here with her . General Appearance: Alert and conversant, cooperative. Eyes: No scleral icterus. ENT, Mouth: Normal mucous membranes. Respiratory: Normal respiratory effort, breath sounds equal, lungs are clear to auscultation. I do not auscultate any wheezing. Cardiovascular: Regular rate and rhythm. Gastrointestinal: Abdomen is soft and non tender. No pulsatile masses. No rebound or guarding. No focal tenderness. Neurological: Alert, face symmetric, normal motor and sensory in extremities. Ambulatory. Skin: Warm and dry, no rashes. No zoster. Musculoskeletal: Mild left CVA tenderness and no spinal tenderness. Psychiatric: Not agitated. Emergency Department course/MDM: Urine dip positive for blood only. Likely renal colic, will treat symptomatically if microscopic confirms. I think at this point unlikely to be shingles, aortic aneurysm or other vascular , acute surgical abdominal process, hernia or bowel obstruction. Unlikely to be urinary tract infection or pyelonephritis. 1530: discussed results. Patient requesting oral tramadol for pain which she takes with Benadryl, which she has tolerated well in the past. She does have multiple allergies. Because of this I think that Flomax is contraindicated. Patient states she is comfortable going home symptomatic treatment of her likely left-sided renal colic. She will follow up with her urologist. Smoking Status: Never smoked Constitutional: Initial Vital Signs Temperature (C) 36.6 C 01/21/18 14:43 Heart Rate 94 01/21/18 14:43 Respiratory Rate 18 01/21/18 14:43 Blood Pressure 137/69 H 01/21/18 14:43 O2 Sat (%) 91 L 01/21/18 14:43 O2 Delivery Mode Room Air Allergies/Adverse Reactions: acetaminophen [From Vicodin] Allergy (Intermediate, Verified 03/28/17 13:53) Rash codeine [Codeine] Allergy (Intermediate, Verified 03/28/17 13:53) Rash hydrocodone [Hydrocodone] Allergy (Intermediate, Verified 03/28/17 13:53) Itching hydrocodone bitartrate [From Vicodin] Allergy (Intermediate, Verified 03/28/17 13:53) Rash latex [Latex] Allergy (Intermediate, Verified 03/28/17 13:53) Hives levofloxacin [From Levaquin] Allergy (Intermediate, Verified 03/28/17 13:53) Other-Enter Comments nitrofurantoin [From Macrobid] Allergy (Intermediate, Verified 03/28/17 13:53) Other-Enter Comments nitrofurantoin macrocrystalline [From Macrobid] Allergy (Intermediate, Verified 03/28/17 13:53) Other-Enter Comments oxycodone HCl [From Percocet] Allergy (Intermediate, Verified 03/28/17 13:53) Itching propoxyphene napsylate [From Darvocet-N 100] Allergy (Intermediate, Verified 09/07 13:53) Itching clarithromycin Allergy (Mild, Verified 03/28/17 13:53) Other-Enter Comments Sulfa (Sulfonamide Antibiotics) Allergy (Unknown, Verified 03/28/17 13:53) Unknown GLUTEN Allergy (Intermediate, Uncoded 03/28/17 13:53) Other-Enter Comments ISONIAZIDE Allergy (Intermediate, Uncoded 03/28/17 13:53) Other-Enter Comments MILK PROTEIN Allergy (Intermediate, Uncoded 03/28/17 13:53) Other-Enter Comments HAYFEVER Allergy (Mild, Uncoded 03/28/17 13:53) Other-Enter Comments Home Medications: Medication Instructions Recorded Advair 100/50 (*) 01/21/18 Albuterol 01/21/18 Aspirin 81mg (*) 01/21/18 Cymbalta 01/21/18 Dymista Nasal [place] 01/21/18 Gabapentin 01/21/18 Hydrocodone-Acetamin 5-325 mg 01/21/18 Levfluronamide 01/21/18 Nexium 01/21/18 Tramadol HCl 50 mg PO Q8 PRN #7 tablet 01/21/18 traMADol 01/21/18 Medical Decision Making - Data Points Laboratory Results: 01/21/18 14:55 Urine Color YELLOW Urine Appearance HAZY Urine pH 5.0 (5.0-7.5) Ur Specific Mc[place]osh 1.027 (1.002-1.030) Urine Protein NEGATIVE (NEGATIVE) Urine Ketones NEGATIVE (NEGATIVE) Urine Blood 3+ H (NEGATIVE) Urine Nitrate NEGATIVE (NEGATIVE) Urine Bilirubin NEGATIVE (NEGATIVE) Urine Urobilinogen NEGATIVE EU EU (0.2-1.0) Ur Leukocyte Esterase NEGATIVE (NEGATIVE) Urine RBC 50-182 /hpf H /hpf (0-3) Urine WBC 1-3 /hpf /hpf (0-3) Ur Epithelial Cells TRACE /lpf /lpf (NONE-1+) Calcium Oxalate Crystal PRESENT /hpf /hpf (NONE-1+) Urine Mucus 2+ /lpf H /lpf (NONE-1+) Urine Glucose NEGATIVE (NEGATIVE) Medications Given: Discontinued Medications Diphenhydramine HCl (Benadryl) 25 mg PO EDNOW ONE Stop: 01/21/18 15:34 Last Admin: 01/21/18 15:39 Dose: 25 mg Tramadol HCl (Ultram) 50 mg PO EDNOW ONE Stop: 01/21/18 15:34 Last Admin: 01/21/18 15:39 Dose: 50 mg Tramadol HCl (Ultram) 50 mg PO EDNOW ONE Stop: 01/21/18 15:34 Last Admin: 01/21/18 15:39 Dose: Not Given Point of Care Test Results: Urine Dip Collection Date 01/21/18 Collection Time 15:05 Specific Mcintosh (1.002-1.030) 1.010 PH (5.0-7.5) 7.0 Leukocytes (Negative) Negative Nitrites (Negative) Negative Protein (Negative) Negative Glucose (Negative) Negative Ketones (Negative) Negative Urobilnogen (0.2-1.0 EU) 1.0 Bilirubin (Negative) Negative Blood (Negative) 3+ Departure - Departure Disposition: Home, Routine, Self-Care Clinical Impression: Renal colic on left side Condition: Good Instructions: Tramadol (By mouth), Renal Colic (ED) Additional Instructions: Urine showed microscopic amounts of blood but no infection. Referrals: Austen Murrell MD [Primary Care Provider] - As per Instructions Jessica Jay MD [Medical Doctor] - 2-3 days, call for appt. Prescriptions: Tramadol HCl 50 mg PO Q8 PRN #7 tablet PRN Reason: flank pain
[2018-01-21] MEDS ORDERED: traMADol 50 MG TAB PO ONE ×2 (15:33)
[2018-01-21] MEDS ORDERED: diphenhydrAMINE 25 MG CAP PO ONE (15:33)
[2018-01-21 15:56] VITALS: BP 144/80
== END 2018-01-21 15:56 | disposition home or self-care (01) ==
DX: N23 Unspecified renal colic (principal)

== ENCOUNTER → 2018-01-23 | Outpatient (CLI) | payer OTHER | LOC: FIMAGING 13:45 | PROVIDERS: ATTEND Urology | DX: N20.2 Calculus of kidney with calculus of ureter (principal); K59.00 Constipation, unspecified; K57.30 Diverticulosis of large intestine without perforation or abscess without bleeding; K42.9 Umbilical hernia without obstruction or gangrene ==

== ENCOUNTER 2018-01-27 12:15 | Emergency (ER) | payer OTHER ==
[2018-01-27] MEDS ORDERED: LIDOCAINE 4%/MENTHOL 1% PATCH TD ONE (12:54)
--- NOTE | 2018-01-27 13:01 | EDPHY ---
H & P Stated Complaint: bladder pressure, R lower flank pain, known kid stones Time Seen by Provider: 01/27/18 12:47 - Medical/Surgical History Hx Asthma: Yes Hx Chronic Respiratory Disease: No Hx Diabetes: Yes Hx Cardiac Disease: Yes Hx Renal Disease: No Hx Cirrhosis: No Hx Alcoholism: No Hx HIV/AIDS: No Hx Splenectomy or Spleen Trauma: No Other PMH: PMH: RA, immunocompromised, diet controlled diabetes, acid reflux, TIA in 2006, kidney stones. PSH: hernia repair x 2,Lt finger repair - Social History Smoking Status: Never smoked Constitutional: Initial Vital Signs Temperature (C) 36.8 C 01/27/18 12:19 Heart Rate 88 01/27/18 12:19 Respiratory Rate 18 01/27/18 12:19 Blood Pressure 168/88 H 01/27/18 12:19 O2 Sat (%) 98 01/27/18 12:19 O2 Delivery Mode Room Air Allergies/Adverse Reactions: acetaminophen [From Vicodin] Allergy (Intermediate, Verified 03/28/17 13:53) Rash codeine [Codeine] Allergy (Intermediate, Verified 03/28/17 13:53) Rash hydrocodone [Hydrocodone] Allergy (Intermediate, Verified 03/28/17 13:53) Itching hydrocodone bitartrate [From Vicodin] Allergy (Intermediate, Verified 03/28/17 13:53) Rash latex [Latex] Allergy (Intermediate, Verified 03/28/17 13:53) Hives levofloxacin [From Levaquin] Allergy (Intermediate, Verified 03/28/17 13:53) Other-Enter Comments nitrofurantoin [From Macrobid] Allergy (Intermediate, Verified 03/28/17 13:53) Other-Enter Comments nitrofurantoin macrocrystalline [From Macrobid] Allergy (Intermediate, Verified 03/28/17 13:53) Other-Enter Comments oxycodone HCl [From Percocet] Allergy (Intermediate, Verified 03/28/17 13:53) Itching propoxyphene napsylate [From Darvocet-N 100] Allergy (Intermediate, Verified 09/07 13:53) Itching clarithromycin Allergy (Mild, Verified 03/28/17 13:53) Other-Enter Comments Sulfa (Sulfonamide Antibiotics) Allergy (Unknown, Verified 03/28/17 13:53) Unknown GLUTEN Allergy (Intermediate, Uncoded 03/28/17 13:53) Other-Enter Comments ISONIAZIDE Allergy (Intermediate, Uncoded 03/28/17 13:53) Other-Enter Comments MILK PROTEIN Allergy (Intermediate, Uncoded 03/28/17 13:53) Other-Enter Comments HAYFEVER Allergy (Mild, Uncoded 03/28/17 13:53) Other-Enter Comments Home Medications: Medication Instructions Recorded Advair 100/50 (*) 01/21/18 Albuterol 01/21/18 Aspirin 81mg (*) 01/21/18 Cymbalta 01/21/18 Dymista Nasal [place] 01/21/18 Gabapentin 01/21/18 Hydrocodone-Acetamin 5-325 mg 01/21/18 Levfluronamide 01/21/18 Nexium 01/21/18 Tramadol HCl 50 mg PO Q8 PRN #7 tablet 01/21/18 traMADol 01/21/18 oxyCODONE IR [Oxycodone Ir (*)] 5 - 10 mg PO Q6 PRN #14 tab 01/27/18 Medical Decision Making - Diagnostics Imaging Results: Imaging Impressions Abdomen/Pelvis CT 01/27/18 13:06 Impression: 1. 2 mm right UVJ calculus with development of mild to moderate right-sided hydronephrosis. 2. At least 4 nonobstructive calculi lower pole left kidney. 3. Moderate scoliosis. 4. Development of small right pleural effusion with adjacent compressive atelectatic change at the lung bases. Attention: This CT examination is specifically designed to evaluate patients who are clinically suspected of having acute obstructive uropathy. This examination does not use radiographic contrast, and as such, provides only a limited evaluation of the abdomen, pelvis and retroperitoneum. If there is further clinical suspicion for pathological conditions other than obstructive uropathy, a complete CT evaluation of the abdomen and pelvis utilizing intravenous, oral, and rectal contrast should be considered. Findings discussed with Trenton Ray MD at 14:25 hour, 01/27/2018. Imaging: Discussed imaging studies w/ call center dispatcher Radiologist, I viewed and interpreted images myself ED Course/Re-evaluation: CHIEF COMPLAINT: Bladder pain HISTORY OF PRESENT ILLNESS: The patient is a 77 y/o female who recently passed a kidney stone 3 days ago complaining of persistent bladder and flank pain. An abdominal CT on 01/23/18 showed left nephrolithiasis and a small, nonobstructing 1mm distal ureteral stone. She caught a stone in a urine strainer the next day, but has not had notable improvement since then. She has associated sensation of bladder fullness. She denies gross hematuria, fever, vomiting. She notes she had a Rituximab infusion on . REVIEW OF SYSTEMS: A comprehensive 10 system review of systems is otherwise negative aside from elements mentioned in the history of present illness and medical decision making. PHYSICAL EXAM: HR, BP, O2 Sat, RR. Temp noted General Appearance: Alert, well hydrated, appropriate, and non-toxic appearing. Head: Atraumatic without scalp tenderness or obvious injury Eyes: Pupils equal, round, reactive to light and accommodation, EOMI, no trauma , no injection. Nose: Atraumatic, no rhinorrhea, clear. Throat: Mucus membranes moist. Neck: Supple, non-tender, no lymphadenopathy. Respiratory: No retractions, no distress, no wheezes, and no accessory muscle use. Lungs are clear to auscultation bilaterally. Cardiovascular: Regular rate and rhythm, no murmurs, rubs, or gallops. Good capillary refill all extremities. Gastrointestinal: Abdomen is soft, mild suprapubic tenderness, non-distended, no masses, no rebound, no guarding, no peritoneal signs. Musculoskeletal: Normal active ROM of all extremities, atraumatic. Neurological: Alert, appropriate, and interactive. The patient has non-focal cranial nerves, motor, sensory, and cerebellar exam. Skin: No rashes, good turgor, no nodules on palpation. PAST MEDICAL HISTORY: Rheumatoid arthritis - rituximab, diabetes, acid reflux, TIA in 2006, kidney stones PAST SURGICAL HISTORY: Hernia repair x 2, finger repair SOCIAL HISTORY: at bedside. Lives in [place]. Retired. DIAGNOSTICS/PROCEDURES/CRITICAL CARE TIME: Abdominal CT: distal right 2mm ureteral stone DIFFERENTIAL DIAGNOSIS: The differential diagnosis for the patient's abdominal pain included but was not limited to ovarian cyst, pelvic inflammatory disease, ovarian torsion, urinary tract infection, ectopic , cholecystitis, and appendicitis. MEDICAL DECISION MAKING: This is a 77 y/o female who recently passed a kidney stone and returns today with ongoing abdominal pain over her bladder. She has mild suprapubic tenderness on exam. She is afebrile. Suspect recurrent stone and/or UTI most likely cause for her symptoms. Plan for IV, labs, UA, and abdominal CT. 200mg PO Pyridium ordered. UA shows 2+ RBC. No signs of infection. CT shows distal right 2mm ureteral stone. Reassessed patient and discussed findings. She will be discharged with scripts for OxyIR and instructions to use her home Flomax and ibuprofen as directed for kidney stone. She's previously had mild itching with hydrocodone, but prefers to have a narcotic prescription and use Benadryl if needed if she develops itching again. We discussed signs and symptoms of an allergic reaction, when to return to the ED, and to discontinue the oxycodone if she does develop any of these symptoms. Otherwise she will follow up with her urologist for reassessment. She is comfortable with this plan. - Data Points Laboratory Results: Laboratory Results 01/27/18 14:10 01/27/18 13:20 01/27/18 01/27/18 01/27/18 14:10 13:20 13:20 WBC 5.86 10^3/uL 10^3/uL REJ (3.80-9.50) RBC 4.23 10^6/uL 10^6/uL REJ (4.18-5.33) Hgb 13.5 g/dL g/dL REJ (12.6-16.3) Hct 42.3 % % REJ (38.0-47.0) MCV 100.0 fL H fL REJ (81.5-99.8) MCH 31.9 pg pg REJ (27.9-34.1) MCHC 31.9 g/dL L g/dL REJ (32.4-36.7) RDW 13.3 % % REJ (11.5-15.2) Plt Count 171 10^3/uL 10^3/uL REJ (150-400) MPV 11.6 fL fL REJ (8.7-11.7) Neut % (Auto) 67.9 % % REJ (39.3-74.2) Lymph % (Auto) 17.4 % % REJ (15.0-45.0) [place] % (Auto) 13.0 % % REJ (4.5-13.0) Eos % (Auto) 1.0 % % REJ (0.6-7.6) Baso % (Auto) 0.5 % % REJ (0.3-1.7) Nucleat RBC Rel Count 0.0 % % REJ (0.0-0.2) Absolute Neuts (auto) 3.98 10^3/uL 10^3/uL REJ (1.70-6.50) Absolute Lymphs (auto) 1.02 10^3/uL 10^3/uL REJ (1.00-3.00) Absolute Monos (auto) 0.76 10^3/uL 10^3/uL REJ (0.30-0.80) Absolute Eos (auto) 0.06 10^3/uL 10^3/uL REJ (0.03-0.40) Absolute Basos (auto) 0.03 10^3/uL 10^3/uL REJ (0.02-0.10) Absolute Nucleated RBC 0.00 10^3/uL 10^3/uL REJ (0-0.01) Immature Gran % 0.2 % % REJ (0.0-1.1) Immature Gran # 0.01 10^3/uL 10^3/uL REJ (0.00-0.10) Sodium 138 mEq/L mEq/L (135-145) Potassium 3.3 mEq/L mEq/L (3.3-5.0) Chloride 106 mEq/L mEq/L (97-110) Carbon Dioxide 25 mEq/l mEq/l (22-31) Anion Gap 7 mEq/L L mEq/L (8-16) BUN 23 mg/dL mg/dL (7-23) Creatinine 0.7 mg/dL mg/dL (0.6-1.0) Estimated GFR > 60 Glucose 91 mg/dL mg/dL (70-100) Calcium 9.0 mg/dL mg/dL (8.5-10.4) Urine Color Urine Appearance Urine pH Ur Specific [place] Urine Protein Urine Ketones Urine Blood Urine Nitrate Urine Bilirubin Urine Urobilinogen Ur Leukocyte Esterase Urine Glucose 01/27/18 12:30 WBC RBC Hgb Hct MCV MCH MCHC RDW Plt Count MPV Neut % (Auto) Lymph % (Auto) [place] % (Auto) Eos % (Auto) Baso % (Auto) Nucleat RBC Rel Count Absolute Neuts (auto) Absolute Lymphs (auto) Absolute Monos (auto) Absolute Eos (auto) Absolute Basos (auto) Absolute Nucleated RBC Immature Gran % Immature Gran # Sodium Potassium Chloride Carbon Dioxide Anion Gap BUN Creatinine Estimated GFR Glucose Calcium Urine Color YELLOW Urine Appearance CLEAR Urine pH 5.0 (5.0-7.5) Ur Specific [place] 1.015 (1.002-1.030) Urine Protein NEGATIVE (NEGATIVE) Urine Ketones NEGATIVE (NEGATIVE) Urine Blood 2+ H (NEGATIVE) Urine Nitrate NEGATIVE (NEGATIVE) Urine Bilirubin NEGATIVE (NEGATIVE) Urine Urobilinogen NEGATIVE EU EU (0.2-1.0) Ur Leukocyte Esterase NEGATIVE (NEGATIVE) Urine Glucose NEGATIVE (NEGATIVE) Medications Given: Discontinued Medications Hydromorphone HCl (Dilaudid) 0.5 mg IVP EDNOW ONE Stop: 01/27/18 14:05 Last Admin: 01/27/18 14:27 Dose: 0.5 mg Ketorolac Tromethamine (Toradol) 30 mg IVP EDNOW ONE Stop: 01/27/18 14:05 Last Admin: 01/27/18 14:27 Dose: 30 mg Phenazopyridine HCl (Pyridium) 200 mg PO EDNOW ONE Stop: 01/27/18 13:07 Last Admin: 01/27/18 13:43 Dose: 200 mg Departure - Departure Disposition: Home, Routine, Self-Care Clinical Impression: Kidney stone on right side Condition: Good Instructions: Kidney Stones (ED) Additional Instructions: 1. Take 600mg ibuprofen every 6-8 hours for pain and inflammation over the next few days. 2. Take OxyIR as prescribed as needed for severe pain. This medication can make you drowsy and constipated. Do not use prior to driving. You can take 25mg Benadryl in conjunction with this if needed for mild itching. If you develop worsening signs of allergic reaction return to the ED as discussed. 3. Use Flomax as prescribed as directed for kidney stone. 4. Strain urine as directed. 5. Follow up with your urologist this week. 6. Return to the ED for worsening of condition. Referrals: Austen Murrell MD [Primary Care Provider] - As per Instructions Jessica Jay MD [Medical Doctor] - As per Instructions Prescriptions: oxyCODONE IR [Oxycodone Ir (*)] 5 - 10 mg PO Q6 PRN #14 tab PRN Reason: Pain, Severe Report Scribed for: Trenton A Flor Report Scribed by: Jennifer Mitchell Date of Report: 01/27/18 Time of Report: 13:54
[2018-01-27] MEDS ORDERED: PHENAZOPYRIDINE HCL 200 MG TAB PO ONE (13:06)
[2018-01-27] MEDS ORDERED: KETOROLAC 30 MG/1 ML SDV IVP ONE (14:04)
[2018-01-27] MEDS ORDERED: HYDROmorphONE/DILAUDID 2 MG/ML INJ IVP ONE (14:04)
[2018-01-27 14:21] LABS: PLATELET COUNT 171 10^3/uL (150-400)
[2018-01-27] MEDS ORDERED: TAMSULOSIN HCL 0.4 MG CAP PO ONE (14:41)
[2018-01-27 15:07] VITALS: BP 160/80
[2018-01-27] MEDS ORDERED: PATCH REMOVAL 1 EA PATCH TD SCH (21:00)
== END 2018-01-27 15:08 | disposition home or self-care (01) ==
DX: N20.0 Calculus of kidney (principal)
CPT/HCPCS: 74176; 96374; 96375; 99285; J1170; J1885

== ENCOUNTER → 2018-01-31 | Outpatient (CLI) | payer OTHER | LOC: FIMAGING 09:28 | PROVIDERS: ATTEND Urology | DX: N13.1 Hydronephrosis with ureteral stricture, not elsewhere classified (principal); N20.0 Calculus of kidney ==

== ENCOUNTER 2018-02-12 15:33 | Inpatient (IN) | payer OTHER ==
[2018-02-12] MEDS ORDERED: ONDANSETRON 4 MG/2 ML VIAL IVP ONE ×2 (16:42)
[2018-02-12] MEDS ORDERED: NS 500 ML IV ONE (16:42)
--- NOTE | 2018-02-12 16:47 | EDPHY ---
H & P Time Seen by Provider: 02/12/18 16:16 HPI/ROS: CHIEF COMPLAINT: Diarrhea, nausea HISTORY OF PRESENT ILLNESS: Patient is a 77-year-old female with a history of rheumatoid arthritis immunocompromise who presents emergency department with diarrhea and nausea. Patient states that she was recently diagnosed with a kidney stone. She subsequently was noted to have a stricture and had a stent placed. The stent was removed on Monday. The patient states this was painful procedure. Since Monday she developed nonbloody diarrhea. She has also had significant nausea with no vomiting. Patient reports that she had a temperature to 100.0. Patient denies significant abdominal pain. She reports abdominal bloating and increased bowel sounds. Patient also adds that she had a Rituxan. REVIEW OF SYSTEMS: 10 systems were reveiwed and are negative with the exception of the elements mentioned in the history of present illness. Past Medical/Surgical History: Includes rheumatoid arthritis, diabetes, GERD, TIA, kidney stones Past surgical history: Includes hernia repair x2, finger repair Social history: Patient is . Patient does not smoke Smoking Status: Never smoked Physical Exam: Vitals noted. Afebrile GENERAL: Well-appearing, in no acute distress, alert. HEENT: Eyes normal to inspection, normal pharynx, no signs of dehydration. NECK: Normal, supple. RESPIRATORY: Clear to auscultation bilaterally, no rales, rhonchi or wheezing. CVS: Regular rate and rhythm, no rubs, murmurs, or gallops. ABDOMEN: Soft, nontender, no organomegaly. Mildly distended. BACK: Normal to inspection, no CVA tenderness. SKIN: Normal color, no rash, warm, dry. No pallor. EXTREMITIES: No pedal edema, no calf tenderness, no Homans sign or cords, no joint swelling. NEURO/PSYCH: Alert and oriented, normal mood and affect, normal motor sensory exam. Constitutional: Initial Vital Signs Temperature (C) 37.0 C 02/12/18 15:35 Heart Rate 88 02/12/18 15:35 Respiratory Rate 18 02/12/18 15:35 Blood Pressure 131/90 H 02/12/18 15:35 O2 Sat (%) 93 02/12/18 15:35 O2 Delivery Mode Room Air Allergies/Adverse Reactions: acetaminophen [From Vicodin] Allergy (Intermediate, Verified 02/12/18 15:35) Rash codeine [Codeine] Allergy (Intermediate, Verified 02/12/18 15:35) Rash hydrocodone [Hydrocodone] Allergy (Intermediate, Verified 02/12/18 15:35) Itching hydrocodone bitartrate [From Vicodin] Allergy (Intermediate, Verified 02/12/18 15:35) Rash latex [Latex] Allergy (Intermediate, Verified 02/12/18 15:35) Hives levofloxacin [From Levaquin] Allergy (Intermediate, Verified 02/12/18 15:35) Other-Enter Comments nitrofurantoin [From Macrobid] Allergy (Intermediate, Verified 02/12/18 15:35) Other-Enter Comments nitrofurantoin macrocrystalline [From Macrobid] Allergy (Intermediate, Verified 02/12/18 15:35) Other-Enter Comments oxycodone HCl [From Percocet] Allergy (Intermediate, Verified 02/12/18 15:35) Itching propoxyphene napsylate [From Darvocet-N 100] Allergy (Intermediate, Verified 15:35) Itching clarithromycin Allergy (Mild, Verified 02/12/18 15:35) Other-Enter Comments Sulfa (Sulfonamide Antibiotics) Allergy (Unknown, Verified 02/12/18 15:35) Unknown GLUTEN Allergy (Intermediate, Uncoded 02/12/18 15:35) Other-Enter Comments ISONIAZIDE Allergy (Intermediate, Uncoded 02/12/18 15:35) Other-Enter Comments MILK PROTEIN Allergy (Intermediate, Uncoded 02/12/18 15:35) Other-Enter Comments HAYFEVER Allergy (Mild, Uncoded 02/12/18 15:35) Other-Enter Comments Home Medications: Medication Instructions Recorded Advair 100/50 (*) 01/21/18 Albuterol 01/21/18 Aspirin 81mg (*) 01/21/18 Cymbalta 01/21/18 Dymista Nasal [place] 01/21/18 Gabapentin 01/21/18 Hydrocodone-Acetamin 5-325 mg 01/21/18 Levfluronamide 01/21/18 Nexium 01/21/18 Tramadol HCl 50 mg PO Q8 PRN #7 tablet 01/21/18 traMADol 01/21/18 oxyCODONE IR [Oxycodone Ir (*)] 5 - 10 mg PO Q6 PRN #14 tab 01/27/18 Medical Decision Making ED Course/Re-evaluation: In the emergency department I discussed possible etiologies with the patient. I answered all her questions. IV was placed. Laboratory studies and CT were obtained. CT was ordered because the patient was distended, increased sounds, ongoing diarrhea, and recent procedure. CBC and chemistry unremarkable. UA: Positive for trace bacteria, positive nitrite and white cells. Because of the UA findings and her recent manipulation the patient was given Rocephin 1 g IV. Upon returning from CT imaging the patient had a drop in her oxygen saturation to 84-85 with a good waveform. The patient denies any shortness of breath. She was placed on a nasal cannula. Chest x-ray was ordered. CT of the abdomen pelvis: Please refer the dictated report by Dr. Francis. Patient has non incarcerated or strangulated umbilical hernia. No small bowel obstruction perforation. Normal appearing appendix. No hydronephrosis. Discussed results with the patient. Differential Diagnosis: My differential includes but is not limited to perforation, small-bowel obstruction, viral illness, C diff, electrolyte abnormality, sugar abnormality, diverticulitis diverticulosis - Data Points Laboratory Results: Laboratory Results 02/12/18 15:57 02/12/18 15:57 02/12/18 02/12/18 02/12/18 15:57 15:57 15:57 WBC RBC Hgb Hct MCV MCH MCHC RDW Plt Count MPV Neut % (Auto) Lymph % (Auto) [place] % (Auto) Eos % (Auto) Baso % (Auto) Nucleat RBC Rel Count Absolute Neuts (auto) Absolute Lymphs (auto) Absolute Monos (auto) Absolute Eos (auto) Absolute Basos (auto) Absolute Nucleated RBC Immature Gran % Immature Gran # PT 11.9 SEC L SEC (12.0-15.0) INR 0.86 (0.83-1.16) APTT 25.2 SEC SEC (23.0-38.0) Sodium 137 mEq/L mEq/L (135-145) Potassium 3.3 mEq/L mEq/L (3.3-5.0) Chloride 105 mEq/L mEq/L (97-110) Carbon Dioxide 24 mEq/l mEq/l (22-31) Anion Gap 8 mEq/L mEq/L (6-14) BUN 18 mg/dL mg/dL (7-23) Creatinine 0.8 mg/dL mg/dL (0.6-1.0) Estimated GFR > 60 Glucose 104 mg/dL H mg/dL (70-100) Calcium 10.2 mg/dL mg/dL (8.5-10.4) Total Bilirubin 1.0 mg/dL mg/dL (0.1-1.4) Conjugated Bilirubin 0.2 mg/dL mg/dL (0.0-0.5) Unconjugated Bilirubin 0.8 mg/dL mg/dL (0.0-1.1) AST 27 IU/L IU/L (14-46) ALT 30 IU/L IU/L (9-52) Alkaline Phosphatase 59 IU/L IU/L (38-126) Total Protein 6.9 g/dL g/dL (6.3-8.2) Albumin 4.0 g/dL g/dL (3.5-5.0) Lipase 184 IU/L IU/L (23-300) Urine Color [place]ELLE Urine Appearance HAZY Urine pH 5.0 (5.0-7.5) Ur Specific [place] 1.017 (1.002-1.030) Urine Protein NEGATIVE (NEGATIVE) Urine Ketones NEGATIVE (NEGATIVE) Urine Blood NEGATIVE (NEGATIVE) Urine Nitrate POSITIVE H (NEGATIVE) Urine Bilirubin NEGATIVE (NEGATIVE) Urine Urobilinogen 4.0 EU H EU (0.2-1.0) Ur Leukocyte Esterase NEGATIVE (NEGATIVE) Urine RBC 3-5 /hpf H /hpf (0-3) Urine WBC 10-15 /hpf H /hpf (0-3) Ur Epithelial Cells TRACE /lpf /lpf (NONE-1+) Calcium Oxalate Crystal PRESENT /hpf /hpf (NONE-1+) Urine Bacteria TRACE /hpf H /hpf (NONE SEEN) Hyaline Casts 1-5 /lpf /lpf (0-1) Urine Mucus 4+ /lpf H /lpf (NONE-1+) Urine Glucose NEGATIVE (NEGATIVE) 02/12/18 15:57 WBC 4.88 10^3/uL 10^3/uL (3.80-9.50) RBC 4.26 10^6/uL 10^6/uL (4.18-5.33) Hgb 13.8 g/dL g/dL (12.6-16.3) Hct 41.9 % % (38.0-47.0) MCV 98.4 fL fL (81.5-99.8) MCH 32.4 pg pg (27.9-34.1) MCHC 32.9 g/dL g/dL (32.4-36.7) RDW 12.9 % % (11.5-15.2) Plt Count 246 10^3/uL 10^3/uL (150-400) MPV 12.0 fL H fL (8.7-11.7) Neut % (Auto) 54.9 % % (39.3-74.2) Lymph % (Auto) 27.5 % % (15.0-45.0) [place] % (Auto) 14.8 % H % (4.5-13.0) Eos % (Auto) 1.8 % % (0.6-7.6) Baso % (Auto) 0.6 % % (0.3-1.7) Nucleat RBC Rel Count 0.0 % % (0.0-0.2) Absolute Neuts (auto) 2.68 10^3/uL 10^3/uL (1.70-6.50) Absolute Lymphs (auto) 1.34 10^3/uL 10^3/uL (1.00-3.00) Absolute Monos (auto) 0.72 10^3/uL 10^3/uL (0.30-0.80) Absolute Eos (auto) 0.09 10^3/uL 10^3/uL (0.03-0.40) Absolute Basos (auto) 0.03 10^3/uL 10^3/uL (0.02-0.10) Absolute Nucleated RBC 0.00 10^3/uL 10^3/uL (0-0.01) Immature Gran % 0.4 % % (0.0-1.1) Immature Gran # 0.02 10^3/uL 10^3/uL (0.00-0.10) PT INR APTT Sodium Potassium Chloride Carbon Dioxide Anion Gap BUN Creatinine Estimated GFR Glucose Calcium Total Bilirubin Conjugated Bilirubin Unconjugated Bilirubin AST ALT Alkaline Phosphatase Total Protein Albumin Lipase Urine Color Urine Appearance Urine pH Ur Specific [place] Urine Protein Urine Ketones Urine Blood Urine Nitrate Urine Bilirubin Urine Urobilinogen Ur Leukocyte Esterase Urine RBC Urine WBC Ur Epithelial Cells Calcium Oxalate Crystal Urine Bacteria Hyaline Casts Urine Mucus Urine Glucose Medications Given: Discontinued Medications Sodium Chloride (Ns) 500 mls @ 0 mls/hr IV EDNOW ONE; Wide Open PRN Reason: Protocol Stop: 02/12/18 16:43 Last Admin: 02/12/18 16:51 Dose: 500 mls Ondansetron HCl (Zofran) 4 mg IVP EDNOW ONE Stop: 02/12/18 16:43 Last Admin: 02/12/18 16:51 Dose: 4 mg Ondansetron HCl (Zofran) 4 mg IVP EDNOW ONE Stop: 02/12/18 16:43 Last Admin: 02/12/18 16:52 Dose: Not Given Departure - Departure Disposition: [facility] Inpatient Acute Clinical Impression: Hypoxia Diarrhea Qualifiers: Diarrhea type: unspecified type Qualified Code(s): R19.7 - Diarrhea, unspecified Condition: Good Instructions: Acute Diarrhea (ED) Referrals: Austen Murrell MD [Primary Care Provider] - As per Instructions
[2018-02-12 17:01] LABS: PLATELET COUNT 246 10^3/uL (150-400)
[2018-02-12 17:21] LABS: INR 0.86 (0.83-1.16); PROTIME(PATIENT) 11.9 SEC (12.0-15.0)
[2018-02-12] MEDS ORDERED: IOPAMIDOL (ISOVUE-300) 100 ML BTL ONE (17:25)
[2018-02-12] MEDS ORDERED: PHENAZOPYRIDINE HCL 200 MG TAB PO ONE (18:49)
[2018-02-12] MEDS ORDERED: ACETAMINOPHEN 325 MG TAB PO PRN (19:16)
[2018-02-12] MEDS ORDERED: PROTOCOL POTASSIUM 1 DOSE MISC PRN (19:18)
--- NOTE | 2018-02-12 19:59 | PDGENHP ---
History and Physical - Chief Complaint Diarrhea - History of Present Illness Prudence Odom is a 77 yo F with a PMHx of Rheumatoid Arthritis, recent nephrolithiasis s/p stent placement and removal who presents to [facility] for diarrhea. Patient reports she had renal stent removed on Monday, was given 3 days of oral abx, and started having diarrhea on Monday. She described diarrhea as explosive and copious. Diarrhea continued until this morning when she took one dose of Imodium. She had a small formed BM this morning. She also reports suprapubic pain and dysuria as well as nausea. She denies any chest pain, vomiting, edema, SOB, f/c. History Information - Allergies/Home Medication List Allergies/Adverse Reactions: codeine [Codeine] Allergy (Intermediate, Verified 02/12/18 15:35) Rash hydrocodone [Hydrocodone] Allergy (Intermediate, Verified 02/12/18 15:35) Itching hydrocodone bitartrate [From Vicodin] Allergy (Intermediate, Verified 02/12/18 15:35) Rash latex [Latex] Allergy (Intermediate, Verified 02/12/18 15:35) Hives levofloxacin [From Levaquin] Allergy (Intermediate, Verified 02/12/18 15:35) Other-Enter Comments nitrofurantoin [From Macrobid] Allergy (Intermediate, Verified 02/12/18 15:35) Other-Enter Comments nitrofurantoin macrocrystalline [From Macrobid] Allergy (Intermediate, Verified 02/12/18 15:35) Other-Enter Comments oxycodone HCl [From Percocet] Allergy (Intermediate, Verified 02/12/18 15:35) Itching propoxyphene napsylate [From Darvocet-N 100] Allergy (Intermediate, Verified 15:35) Itching clarithromycin Allergy (Mild, Verified 02/12/18 15:35) Other-Enter Comments Sulfa (Sulfonamide Antibiotics) Allergy (Unknown, Verified 02/12/18 15:35) Unknown GLUTEN Allergy (Intermediate, Uncoded 02/12/18 15:35) Other-Enter Comments ISONIAZIDE Allergy (Intermediate, Uncoded 02/12/18 15:35) Other-Enter Comments MILK PROTEIN Allergy (Intermediate, Uncoded 02/12/18 15:35) Other-Enter Comments HAYFEVER Allergy (Mild, Uncoded 10/22/18 15:35) Other-Enter Comments Home Medications: Advair 100/50 (*) 01/21/18 [Last Taken Unknown] Albuterol 01/21/18 [Last Taken Unknown] Aspirin 81mg (*) 01/21/18 [Last Taken Unknown] Cymbalta 01/21/18 [Last Taken Unknown] Dymista Nasal [place] 01/21/18 [Last Taken Unknown] Gabapentin 01/21/18 [Last Taken Unknown] Hydrocodone-Acetamin 5-325 mg 01/21/18 [Last Taken Unknown] Levfluronamide 01/21/18 [Last Taken Unknown] Nexium 01/21/18 [Last Taken Unknown] traMADol 01/21/18 [Last Taken Unknown] I have personally reviewed and updated: family history, medical history, social history, surgical history - Past Medical History Additional medical history: Rheumatoid arthritis, Asthma - Social History Smoking Status: Never smoked Review of Systems Review of Systems: ROS: 10pt was reviewed & negative except for what was stated in HPI & below Physical Exam Physical Exam: Temp Pulse Resp BP Pulse Ox 36.4 C 83 20 142/81 H 93 02/12/18 17:55 02/12/18 19:15 02/12/18 19:15 02/12/18 19:15 02/12/18 19:15 Constitutional: no apparent distress Eyes: PERRL Ears, Nose, Mouth, Throat: dry mucous membranes Cardiovascular: regular rate and rhythym Respiratory: no respiratory distress, clear to auscultation Gastrointestinal: tenderness, No guarding, No rebound Genitourinary: no bladder fullness Skin: warm Neurologic: AAOx3 Psychiatric: interacting appropriately Lab Data & Imaging Review 02/12/18 15:57 02/12/18 15:57 WBC 4.88 10^3/uL (3.80-9.50) 02/12/18 15:57 RBC 4.26 10^6/uL (4.18-5.33) 02/12/18 15:57 Hgb 13.8 g/dL (12.6-16.3) 02/12/18 15:57 Hct 41.9 % (38.0-47.0) 02/12/18 15:57 MCV 98.4 fL (81.5-99.8) 02/12/18 15:57 MCH 32.4 pg (27.9-34.1) 02/12/18 15:57 MCHC 32.9 g/dL (32.4-36.7) 02/12/18 15:57 RDW 12.9 % (11.5-15.2) 02/12/18 15:57 Plt Count 246 10^3/uL (150-400) 02/12/18 15:57 MPV 12.0 fL (8.7-11.7) H 02/12/18 15:57 Neut % (Auto) 54.9 % (39.3-74.2) 02/12/18 15:57 Lymph % (Auto) 27.5 % (15.0-45.0) 02/12/18 15:57 [place] % (Auto) 14.8 % (4.5-13.0) H 02/12/18 15:57 Eos % (Auto) 1.8 % (0.6-7.6) 02/12/18 15:57 Baso % (Auto) 0.6 % (0.3-1.7) 02/12/18 15:57 Nucleat RBC Rel Count 0.0 % (0.0-0.2) 02/12/18 15:57 Absolute Neuts (auto) 2.68 10^3/uL (1.70-6.50) 02/12/18 15:57 Absolute Lymphs (auto) 1.34 10^3/uL (1.00-3.00) 02/12/18 15:57 Absolute Monos (auto) 0.72 10^3/uL (0.30-0.80) 02/12/18 15:57 Absolute Eos (auto) 0.09 10^3/uL (0.03-0.40) 02/12/18 15:57 Absolute Basos (auto) 0.03 10^3/uL (0.02-0.10) 02/12/18 15:57 Absolute Nucleated RBC 0.00 10^3/uL (0-0.01) 02/12/18 15:57 Immature Gran % 0.4 % (0.0-1.1) 02/12/18 15:57 Immature Gran # 0.02 10^3/uL (0.00-0.10) 02/12/18 15:57 PT 11.9 SEC (12.0-15.0) L 02/12/18 15:57 INR 0.86 (0.83-1.16) 02/12/18 15:57 APTT 25.2 SEC (23.0-38.0) 02/12/18 15:57 Sodium 137 mEq/L (135-145) 02/12/18 15:57 Potassium 3.3 mEq/L (3.3-5.0) 02/12/18 15:57 Chloride 105 mEq/L (97-110) 02/12/18 15:57 Carbon Dioxide 24 mEq/l (22-31) 02/12/18 15:57 Anion Gap 8 mEq/L (6-14) 02/12/18 15:57 BUN 18 mg/dL (7-23) 02/12/18 15:57 Creatinine 0.8 mg/dL (0.6-1.0) 02/12/18 15:57 Estimated GFR > 60 02/12/18 15:57 Glucose 104 mg/dL (70-100) H 02/12/18 15:57 Calcium 10.2 mg/dL (8.5-10.4) 02/12/18 15:57 Total Bilirubin 1.0 mg/dL (0.1-1.4) 02/12/18 15:57 Conjugated Bilirubin 0.2 mg/dL (0.0-0.5) 02/12/18 15:57 Unconjugated Bilirubin 0.8 mg/dL (0.0-1.1) 02/12/18 15:57 AST 27 IU/L (14-46) 02/12/18 15:57 ALT 30 IU/L (9-52) 02/12/18 15:57 Alkaline Phosphatase 59 IU/L (38-126) 02/12/18 15:57 Total Protein 6.9 g/dL (6.3-8.2) 02/12/18 15:57 Albumin 4.0 g/dL (3.5-5.0) 02/12/18 15:57 Lipase 184 IU/L (23-300) 02/12/18 15:57 Urine Color ESTELLE 02/12/18 15:57 Urine Appearance HAZY 02/12/18 15:57 Urine pH 5.0 (5.0-7.5) 02/12/18 15:57 Ur Specific [place] 1.017 (1.002-1.030) 02/12/18 15:57 Urine Protein NEGATIVE (NEGATIVE) 02/12/18 15:57 Urine Ketones NEGATIVE (NEGATIVE) 02/12/18 15:57 Urine Blood NEGATIVE (NEGATIVE) 02/12/18 15:57 Urine Nitrate POSITIVE (NEGATIVE) H 02/12/18 15:57 Urine Bilirubin NEGATIVE (NEGATIVE) 02/12/18 15:57 Urine Urobilinogen 4.0 EU (0.2-1.0) H 02/12/18 15:57 Ur Leukocyte Esterase NEGATIVE (NEGATIVE) 02/12/18 15:57 Urine RBC 3-5 /hpf (0-3) H 02/12/18 15:57 Urine WBC 10-15 /hpf (0-3) H 02/12/18 15:57 Ur Epithelial Cells TRACE /lpf (NONE-1+) 02/12/18 15:57 Calcium Oxalate Crystal PRESENT /hpf (NONE-1+) 02/12/18 15:57 Urine Bacteria TRACE /hpf (NONE SEEN) H 02/12/18 15:57 Hyaline Casts 1-5 /lpf (0-1) 02/12/18 15:57 Urine Mucus 4+ /lpf (NONE-1+) H 02/12/18 15:57 Urine Glucose NEGATIVE (NEGATIVE) 02/12/18 15:57 Assessment & Plan Assessment: Diarrhea (Acute) - Started after oral abx, likely antibiotic related diarrhea - Reports improvement with Imodium - GI PCR panel is pending, if negative continue Imodium - Continue IVF hydration UTI (Acute) - Reports dysuria, suprapubic pain - S/p nephrolithiasis with stent placement/removal - UA with +Nitrate, WBC - S/p Ceftriaxone in ED, will continue for now - Urine culture is pending Hypokalemia - K 3.3 on admission - In setting of diarrhea - Replacement protocol ordered - Continue to monitor Asthma - Continue home Advair, Albuterol - No current exacerbation present Rheumatoid Arthritis - Continue home Levflunamide, Gabapentin FEN: IVF overnight, NPO, advance as tolerated DVT: Lovenox Code: FULL Dispo: Admit to Observation
[2018-02-12] MEDS: ONDANSETRON 4 MG/2 ML VIAL IVP PRN (20:46)
[2018-02-12] MEDS ORDERED: oxyCODONE IR 5 MG TAB PO ONE (21:24)
[2018-02-12] MEDS ORDERED: diphenhydrAMINE 25 MG CAP PO ONE (21:29)
[2018-02-12] MEDS ORDERED: POTASSIUM CL 10 MEQ TAB PO ONE (22:26)
[2018-02-12] MEDS: NS 1,000 ML IV SCH (22:53)
[2018-02-13] MEDS: diphenhydrAMINE 25 MG CAP PO PRN ×2 (01:18→13:30)
[2018-02-13] MEDS: oxyCODONE IR 5 MG TAB PO PRN ×2 (01:18→13:29)
[2018-02-13] MEDS ORDERED: POTASSIUM CL 10 MEQ TAB PO ONE (07:10)
[2018-02-13] MEDS: ONDANSETRON 4 MG/2 ML VIAL IVP PRN (08:21)
[2018-02-13] MEDS: ENOXAPARIN 40 MG/0.4 ML SYR SC SCH (08:22)
--- NOTE | 2018-02-13 11:17 | HOSPPROG ---
Hospitalist Progress Note Assessment/Plan: Prudence Odom is a 77 yo F with a PMHx of Rheumatoid Arthritis, recent nephrolithiasis s/p stent placement and removal who presents to [facility] for diarrhea. Patient reports she had renal stent removed on Monday, was given 3 days of oral abx, and started having diarrhea on Monday. She described diarrhea as explosive and copious. Diarrhea continued until this morning when she took one dose of Imodium. She had a small formed BM this morning. She also reports suprapubic pain and dysuria as well as nausea. She denies any chest pain, vomiting, edema, SOB, f/c. Today is my first day caring for Prudence , reviewed her care w her RN. *Diarrhea (Acute)/likely a viral gastroenteritis -getting hydration -GI PCR shows no acute infection -start Imodium UTI (Acute) - Reports dysuria, suprapubic pain - Ceftriaxone - urine cx pending Hypokalemia -replacement protocol Asthma - Continue home Advair, Albuterol - No current exacerbation present Rheumatoid Arthritis - Hold Leflunomide - resumed gabapentin Plan: she is having some ongoing nausea, will change diet to clear liquids, continue IV fluids. Due to ongoing diarrhea and need for IV hydration, she will require another midnight stay. Subjective: Prudence is c/o ongoing nausea, not hungry. Objective: Vital Signs Temp Pulse Resp BP Pulse Ox 36.4 C 75 18 151/85 H 91 L 02/13/18 07:54 02/13/18 07:54 02/13/18 07:54 02/13/18 07:54 02/13/18 07:54 Laboratory Results 02/13/18 05:00 02/12/18 02/13/18 02/14/18 05:59 05:59 05:59 Intake Total 1000 Balance 1000 PT 11.9 SEC (12.0-15.0) L 02/12/18 15:57 INR 0.86 (0.83-1.16) 02/12/18 15:57 - Physical Exam Constitutional: uncomfortable Eyes: PERRL Ears, Nose, Mouth, Throat: hearing normal Cardiovascular: regular rate and rhythym Respiratory: no respiratory distress Gastrointestinal: tenderness (slight), No normoactive bowel sounds (hyperactive) Skin: warm Musculoskeletal: full muscle strength Neurologic: AAOx3 Psychiatric: interacting appropriately ICD10 Worksheet Patient Problems: Problems Problem Status Onset Diarrhea Acute Hypoxia Acute Flank pain Acute Hematuria Acute
[2018-02-13] MEDS: POTASSIUM Cl (KCl) 100 ML IV SCH ×4 (13:29→21:20)
[2018-02-13] MEDS: GABAPENTIN 300 MG CAP PO SCH ×2 (13:31→21:20)
[2018-02-13] MEDS: DULoxetine 60 MG CAP PO SCH (13:32)
--- NOTE | 2018-02-13 13:55 | ASMTCMCOM ---
CM Note CM Note Notes: Pt is a 77 y/o female admitted for diarrhea, fever and nausea. Pt had a renal stent removed on Monday. Pts diarrhea started shortly after that. Therapies have been ordered and awaiting recommendations. Needs are TBD at this time. CM available for changes. Plan: TBD Date Signed: 02/13/2018 01:54 PM Electronically Signed By:GLORIA Hinds
[2018-02-13] MEDS: NS 1,000 ML IV SCH (15:27)
[2018-02-13] MEDS: LOPERAMIDE HCL 2 MG CAP PO PRN ×2 (16:36→21:34)
[2018-02-13] MEDS: ONDANSETRON DISINTEGRATING 4 MG TAB PO PRN ×2 (19:25→23:29)
[2018-02-14] MEDS: ONDANSETRON DISINTEGRATING 4 MG TAB PO PRN ×3 (06:00→20:13)
[2018-02-14] MEDS: LOPERAMIDE HCL 2 MG CAP PO PRN ×3 (06:00→18:34)
[2018-02-14] MEDS: oxyCODONE IR 5 MG TAB PO PRN (08:08)
[2018-02-14] MEDS: diphenhydrAMINE 25 MG CAP PO PRN (08:09)
[2018-02-14] MEDS: POTASSIUM Cl (KCl) 100 ML IV SCH ×3 (09:12→12:47)
[2018-02-14] MEDS: ENOXAPARIN 40 MG/0.4 ML SYR SC SCH (09:12)
[2018-02-14] MEDS: GABAPENTIN 300 MG CAP PO SCH ×2 (09:13→20:07)
[2018-02-14] MEDS: DULoxetine 60 MG CAP PO SCH (09:13)
[2018-02-14] MEDS: NS 1,000 ML IV SCH (09:13)
--- NOTE | 2018-02-14 09:56 | PDMN ---
Medical Necessity Medical necessity: Change to IP as of 02/13/18 per and MCG M-170; los > 2 mn for ongoing management of diarrhea and nausea likely related to viral gastroenteritis, as well as UTI; requiring ongoing monitoring, antiemetics, restricted diet, IVF and IV ABX; Comorbid Advanced age, recent nephrolithiasis s /p stent placement and removal
--- NOTE | 2018-02-14 17:40 | HOSPPROG ---
Hospitalist Progress Note Assessment/Plan: Prudence Odom is a 77 yo F with a PMHx of Rheumatoid Arthritis, recent nephrolithiasis s/p stent placement and removal who presents to [facility] for diarrhea. Patient reports she had renal stent removed on Monday, was given 3 days of oral abx, and started having diarrhea on Monday. She described diarrhea as explosive and copious. She also reports suprapubic pain and dysuria as well as nausea. She denies any chest pain, vomiting, edema, SOB, f/ c. Today is my first day caring for Prudence, reviewed her care w her RN. *Diarrhea (Acute)/likely a viral gastroenteritis -getting hydration -GI PCR shows no acute infection -Imodium UTI (Acute) - Reports dysuria, suprapubic pain - Ceftriaxone D#3 - urine cx ecoli Hypokalemia -replacement protocol -check labs in am Asthma - Continue home Advair, Albuterol - No current exacerbation present Rheumatoid Arthritis - Hold Leflunomide - gabapentin Plan: she is having some ongoing nausea, clear liquids diet, continue IV fluids. Due to ongoing diarrhea and need for IV hydration, she will require another midnight stay likely home in the am Subjective: Up in chair. still having nausea. some diarrhea. Objective: Vital Signs Temp Pulse Resp BP Pulse Ox 36.6 C 85 18 114/68 88 L 02/14/18 15:00 02/14/18 15:00 02/14/18 15:00 02/14/18 15:00 02/14/18 15:00 Laboratory Results 02/14/18 17:00 02/13/18 02/14/18 02/15/18 05:59 05:59 05:59 Intake Total 600 Balance 600 PT 11.9 SEC (12.0-15.0) L 02/12/18 15:57 INR 0.86 (0.83-1.16) 02/12/18 15:57 - Physical Exam Constitutional: appears nourished, chronically ill appearing, uncomfortable Eyes: PERRL, anicteric sclera, EOMI Ears, Nose, Mouth, Throat: moist mucous membranes, hearing normal, ears appear normal Cardiovascular: regular rate and rhythym, No JVD, No edema Respiratory: no respiratory distress, no rales or rhonchi, reduced air movement Gastrointestinal: distension, No tenderness, No guarding Skin: warm, normal color, No mottled Musculoskeletal: normal joint ROM, no joint effusions, generalized weakness Neurologic: AAOx3 Psychiatric: interacting appropriately, not anxious, not encephalopathic ICD10 Worksheet Patient Problems: Problems Problem Status Onset Flank pain Acute Hematuria Acute Diarrhea Acute Hypoxia Acute
[2018-02-15] MEDS: ONDANSETRON DISINTEGRATING 4 MG TAB PO PRN (03:59)
[2018-02-15 07:51] VITALS: BP 134/77
[2018-02-15] MEDS: GABAPENTIN 300 MG CAP PO SCH (08:27)
[2018-02-15] MEDS: ENOXAPARIN 40 MG/0.4 ML SYR SC SCH (08:28)
[2018-02-15] MEDS: DULoxetine 60 MG CAP PO SCH (08:28)
[2018-02-15] MEDS: LOPERAMIDE HCL 2 MG CAP PO PRN (11:19)
--- NOTE | 2018-02-15 15:29 | GDS ---
DISCHARGE DIAGNOSES: 1. Diarrhea. 2. Escherichia coli urinary tract infection. 3. Hypokalemia. 4. Asthma. 5. Dehydration. 6. Rheumatoid arthritis. STUDIES AND PROCEDURES DONE: CT of the abdomen. PHYSICAL EXAM: GENERAL: The patient is alert. VITAL SIGNS: Afebrile at 36.6. Pulse is 80, respir atory rate 16. Blood pressure is 134/77. She is saturating 91% on 3 L. I have seen and evaluated t he patient on the day of discharge. HOSPITAL COURSE: The patient is a 77-year-old female who presented to the emergency room with compla ints of diarrhea. She was evaluated and diagnosed with: 1. Acute diarrhea, likely viral gastroenteritis. The patient is improved significantly, or could be residual secondary to the patient's urinary tract infection. Her GI PCR has been negative, and she has been given Imodium. Her condition is improving. 2. Acute urinary tract infection. She does have an E coli urinary tract infection. She was treated with 3 days of Rocephin. Her symptoms are resolved. 3. Hypokalemia. She was placed on replacement. This is in the setting of excessive diarrhea. Her potassium has remained stable overnight. 4. History of rheumatoid arthritis. Her home medications have been re-initiated. DISPOSITION: The patient will be discharged home independently. There are no pending studies. FOLLOWUP: Followup will be with her primary care physician. I have educated her that she should ret urn to her primary care physician or the emergency room if her diarrhea does not resolve or continue to improve. She has no further signs of infectious process or other complication at this time. She is tolerating a regular diet. DISCHARGE MEDICATIONS: Please refer to EMR form. I have provided a prescription for Zofran for the patient at the time of disposition. I have not discontinued any of her other previously prescribed h ome medications to the best of my knowledge. I spent greater than 35 minutes in the care, coordination, and management of the patient's dispositio n. /[id number]/MODL
== END 2018-02-15 15:38 | disposition home or self-care (01) | DRG 690 ==
LOC: F3E 22:06 → OBSVTOIN 02-13 15:35
PROVIDERS: ADMIT Internal Medicine; ATTEND Internal Medicine
DX: N39.0 Urinary tract infection, site not specified (principal); E86.0 Dehydration; B96.20 Unspecified Escherichia coli [E. coli] as the cause of diseases classified elsewhere; J45.909 Unspecified asthma, uncomplicated; E87.6 Hypokalemia; M06.9 Rheumatoid arthritis, unspecified; A08.4 Viral intestinal infection, unspecified
CPT/HCPCS: 96365; 97116-GP; 97161-GP; 97165-GO; 97535-GO; G0378; G8978-GP-CH; G8978-GP-CI; G8979-GP-CH; G8979-GP-CI; G8980-GP-CH; G8987-GO-CI; G8988-GO-CI; G8989-GO-CI; J0696; J1650; J2405; J3480; Q9967

== ENCOUNTER → 2018-04-05 | Outpatient (CLI) | payer OTHER | LOC: BMCIMAGING 16:43 | PROVIDERS: ATTEND Internal Medicine Rheumatology | DX: M05.79 Rheumatoid arthritis with rheumatoid factor of multiple sites without organ or systems involvement (principal) ==

== ENCOUNTER → 2018-04-09 | Outpatient (CLI) | payer OTHER | LOC: BMCIMAGING 13:45 | PROVIDERS: ATTEND Internal Medicine Rheumatology | DX: Z13.820 Encounter for screening for osteoporosis (principal); M81.0 Age-related osteoporosis without current pathological fracture; Z78.0 Asymptomatic menopausal state ==

== ENCOUNTER → 2018-05-12 | Outpatient (CLI) | payer OTHER | LOC: FIMAGING 12:25 | PROVIDERS: ATTEND Internal Medicine | DX: R51 Headache (principal) ==

== ENCOUNTER 2018-05-18 08:06 | Emergency (ER) | payer OTHER ==
--- NOTE | 2018-05-18 08:43 | EDPHY ---
H & P Time Seen by Provider: 05/18/18 08:43 HPI/ROS: CHIEF COMPLAINT: Diarrhea and left-sided flank pain HISTORY OF PRESENT ILLNESS: Patient had left-sided flank pain since yesterday, she had incontinence of stool yesterday and diarrhea in the bed. She presents today with nausea and left flank pain. Not associated with weakness or numbness in her legs. Symptoms moderate to severe. No hematemesis or coffee- ground emesis and no melena. She is a little bit of epigastric abdominal pain. Back pain is worse with movement. REVIEW OF SYSTEMS: Eye: no change in vision ENT: no sore throat Cardiac: no chest pain or syncope Pulmonary: no cough or SOB Abdomen: HPI Musculoskeletal: HPI Skin: No bruising or ecchymosis Neuro: no headache Constitutional: no fever : no urinary symptoms A comprehensive 10 point review of systems is otherwise negative aside from elements mentioned in the history of present illness. PAST MEDICAL HISTORY: Includes renal stones, asthma, rheumatoid arthritis, diet -controlled diabetes, TIA 2006, hernia repair. Discharge summary dated 2017 personally reviewed. Social history: Here with her General Appearance: Alert and conversant, cooperative. Eyes: No scleral icterus. ENT, Mouth: Normal mucous membranes. Respiratory: Normal respiratory effort, breath sounds equal, lungs are clear to auscultation. Cardiovascular: Regular rate and rhythm. Gastrointestinal: Mild epigastric and umbilical tenderness but no rebound or guarding. Not distended and normal bowel sounds. Neurological: Alert, face symmetric, normal motor and sensory in extremities. Ambulatory. Toes downgoing bilaterally. Skin: Warm and dry, no rashes. Musculoskeletal: No peripheral edema. Psychiatric: Not agitated. Emergency Department course/MDM: 1021: CT shows left renal stones without ureteral involvement or hydronephrosis , otherwise negative per Dr. Palomino. Her flank pain is more likely muscular, she may have some infectious diarrhea but I think that cauda equina syndrome or spine fracture or pyelonephritis or epidural abscess or GI bleed all less likely. 1040: Re-evaluated, she took Imodium this morning and has not had any more diarrhea. She would like to try and go home after IV fluids, which I think is reasonable. Smoking Status: Never smoked Constitutional: Initial Vital Signs Temperature (C) 36.5 C 05/18/18 08:15 Heart Rate 74 05/18/18 08:15 Respiratory Rate 18 05/18/18 08:15 Blood Pressure 151/81 H 05/18/18 08:15 O2 Sat (%) 93 05/18/18 08:15 O2 Delivery Mode Nasal Cannula O2 (L/minute) 2 Allergies/Adverse Reactions: codeine [Codeine] Allergy (Intermediate, Verified 05/18/18 08:10) Rash hydrocodone [Hydrocodone] Allergy (Intermediate, Verified 05/18/18 08:10) Itching hydrocodone bitartrate [From Vicodin] Allergy (Intermediate, Verified 05/18/18 08:10) Rash latex [Latex] Allergy (Intermediate, Verified 05/18/18 08:10) Hives levofloxacin [From Levaquin] Allergy (Intermediate, Verified 05/18/18 08:10) Other-Enter Comments nitrofurantoin [From Macrobid] Allergy (Intermediate, Verified 05/18/18 08:10) Other-Enter Comments nitrofurantoin macrocrystalline [From Macrobid] Allergy (Intermediate, Verified 05/18/18 08:10) Other-Enter Comments oxycodone HCl [From Percocet] Allergy (Intermediate, Verified 05/18/18 08:10) Itching propoxyphene napsylate [From Darvocet-N 100] Allergy (Intermediate, Verified 08:10) Itching clarithromycin Allergy (Mild, Verified 05/18/18 08:10) Other-Enter Comments Sulfa (Sulfonamide Antibiotics) Allergy (Unknown, Verified 05/18/18 08:10) Unknown GLUTEN Allergy (Intermediate, Uncoded 02/12/18 15:35) Other-Enter Comments ISONIAZIDE Allergy (Intermediate, Uncoded 02/12/18 15:35) Other-Enter Comments MILK PROTEIN Allergy (Intermediate, Uncoded 02/12/18 15:35) Other-Enter Comments HAYFEVER Allergy (Mild, Uncoded 02/12/18 15:35) Other-Enter Comments Home Medications: Medication Instructions Recorded Aspirin EC [Aspirin EC 81 mg (*)] 81 mg PO DAILY 02/12/18 Azelastine/Fluticasone [Dymista 1 spray NASAL BID 02/12/18 Nasal [place]] DULoxetine [Cymbalta 60 MG (*)] 60 mg PO DAILY 02/12/18 Esomeprazole Mag Trihydrate 40 mg PO DAILYAC 02/12/18 [Nexium] Gabapentin [Neurontin 300 MG (*)] 600 mg PO BID 02/12/18 Leflunomide 20 mg PO DAILY 02/12/18 Pravastatin Sodium 40 mg PO DAILY 02/12/18 Ranitidine HCl 150 mg PO HS 02/12/18 Acetaminophen [Tylenol 325mg (*)] 650 mg PO Q4HRS PRN tab 02/15/18 Loperamide HCl [Imodium 2 mg (*)] 2 mg PO QID PRN cap 02/15/18 Ondansetron Odt [Zofran Odt 4 mg 4 mg PO Q4HRS PRN #30 tab 02/15/18 (*)] Ondansetron Odt [Zofran Odt] 4 mg PO Q4PRN #6 tab 05/18/18 [place] 05/18/18 Prednisone 05/18/18 Medical Decision Making - Diagnostics Imaging Results: Imaging Impressions Abdomen CT 05/18/18 09:19 Impression: !. No acute findings in the abdomen or pelvis. 2. Nonobstructing nephrolithiasis. 3. Diverticulosis without evidence of diverticulitis. 4. Stable fat-containing abdominal hernia. 5. Additional findings as above. Findings discussed with William Louis at 05/18/2018 at 10:22. Imaging: Discussed imaging studies w/ book trimmer Radiologist - Data Points Laboratory Results: Laboratory Results 05/18/18 09:00 05/18/18 09:00 05/18/18 05/18/18 05/18/18 09:09 09:00 09:00 WBC RBC Hgb POC Hgb 15.3 gm/dL gm/dL (12.6-16.3) Hct POC Hct 45 % % (38-47) MCV MCH MCHC RDW Plt Count MPV Neut % (Auto) Lymph % (Auto) [place] % (Auto) Eos % (Auto) Baso % (Auto) Nucleat RBC Rel Count Absolute Neuts (auto) Absolute Lymphs (auto) Absolute Monos (auto) Absolute Eos (auto) Absolute Basos (auto) Absolute Nucleated RBC Immature Gran % Immature Gran # POC Sodium 142 mEq/L mEq/L (135-145) Sodium 140 mEq/L mEq/L (135-145) POC Potassium 3.1 mEq/L L mEq/L (3.3-5.0) Potassium 3.2 mEq/L L mEq/L (3.5-5.2) POC Chloride 105 mEq/L mEq/L (97-110) Chloride 108 mEq/L mEq/L (97-110) Carbon Dioxide 23 mEq/l mEq/l (22-31) Anion Gap 9 mEq/L mEq/L (6-14) POC BUN 27 mg/dL H mg/dL (7-23) BUN 29 mg/dL H mg/dL (7-23) Creatinine 0.8 mg/dL mg/dL (0.6-1.0) POC Creatinine 0.8 mg/dL mg/dL (0.6-1.0) Estimated GFR > 60 Glucose 94 mg/dL mg/dL (70-100) POC Glucose 96 mg/dL mg/dL (70-100) Calcium 9.4 mg/dL mg/dL (8.5-10.4) Urine Color YELLOW Urine Appearance CLEAR Urine pH 5.0 (5.0-7.5) Ur Specific [place] 1.024 (1.002-1.030) Urine Protein NEGATIVE (NEGATIVE) Urine Ketones 1+ H (NEGATIVE) Urine Blood NEGATIVE (NEGATIVE) Urine Nitrate NEGATIVE (NEGATIVE) Urine Bilirubin NEGATIVE (NEGATIVE) Urine Urobilinogen NEGATIVE EU EU (0.2-1.0) Ur Leukocyte Esterase NEGATIVE (NEGATIVE) Urine Glucose NEGATIVE (NEGATIVE) 05/18/18 09:00 WBC 4.64 10^3/uL 10^3/uL (3.80-9.50) RBC 4.74 10^6/uL 10^6/uL (4.18-5.33) Hgb 14.7 g/dL g/dL (12.6-16.3) POC Hgb Hct 45.4 % % (38.0-47.0) POC Hct MCV 95.8 fL fL (81.5-99.8) MCH 31.0 pg pg (27.9-34.1) MCHC 32.4 g/dL g/dL (32.4-36.7) RDW 13.8 % % (11.5-15.2) Plt Count 170 10^3/uL 10^3/uL (150-400) MPV 11.7 fL fL (8.7-11.7) Neut % (Auto) 58.1 % % (39.3-74.2) Lymph % (Auto) 26.7 % % (15.0-45.0) [place] % (Auto) 13.8 % H % (4.5-13.0) Eos % (Auto) 0.6 % % (0.6-7.6) Baso % (Auto) 0.6 % % (0.3-1.7) Nucleat RBC Rel Count 0.0 % % (0.0-0.2) Absolute Neuts (auto) 2.69 10^3/uL 10^3/uL (1.70-6.50) Absolute Lymphs (auto) 1.24 10^3/uL 10^3/uL (1.00-3.00) Absolute Monos (auto) 0.64 10^3/uL 10^3/uL (0.30-0.80) Absolute Eos (auto) 0.03 10^3/uL 10^3/uL (0.03-0.40) Absolute Basos (auto) 0.03 10^3/uL 10^3/uL (0.02-0.10) Absolute Nucleated RBC 0.00 10^3/uL 10^3/uL (0-0.01) Immature Gran % 0.2 % % (0.0-1.1) Immature Gran # 0.01 10^3/uL 10^3/uL (0.00-0.10) POC Sodium Sodium POC Potassium Potassium POC Chloride Chloride Carbon Dioxide Anion Gap POC BUN BUN Creatinine POC Creatinine Estimated GFR Glucose POC Glucose Calcium Urine Color Urine Appearance Urine pH Ur Specific [place] Urine Protein Urine Ketones Urine Blood Urine Nitrate Urine Bilirubin Urine Urobilinogen Ur Leukocyte Esterase Urine Glucose Medications Given: Discontinued Medications Fentanyl (Sublimaze) 50 mcg IVP EDNOW ONE Stop: 05/18/18 08:52 Last Admin: 05/18/18 09:04 Dose: 50 mcg Sodium Chloride (Ns) 1,000 mls @ 0 mls/hr IV EDNOW ONE; Wide Open PRN Reason: Protocol Stop: 05/18/18 08:52 Last Admin: 05/18/18 09:04 Dose: 1,000 mls Sodium Chloride (Ns) 1,000 mls @ 0 mls/hr IV EDNOW ONE; Wide Open PRN Reason: Protocol Stop: 05/18/18 10:43 Last Admin: 05/18/18 11:00 Dose: 1,000 mls Ondansetron HCl (Zofran) 4 mg IVP EDNOW ONE Stop: 05/18/18 08:52 Last Admin: 05/18/18 09:04 Dose: 4 mg Point of Care Test Results: Chemistry 05/18/18 09:09 POC Sodium 142 mEq/L mEq/L (135-145) POC Potassium 3.1 mEq/L L mEq/L (3.3-5.0) POC Chloride 105 mEq/L mEq/L (97-110) POC BUN 27 mg/dL H mg/dL (7-23) POC Creatinine 0.8 mg/dL mg/dL (0.6-1.0) POC Glucose 96 mg/dL mg/dL (70-100) ISTAT H&H 05/18/18 09:09 POC Hgb 15.3 gm/dL gm/dL (12.6-16.3) POC Hct 45 % % (38-47) Departure - Departure Disposition: Home, Routine, Self-Care Clinical Impression: Flank pain Diarrhea Qualifiers: Diarrhea type: unspecified type Qualified Code(s): R19.7 - Diarrhea, unspecified Condition: Good Instructions: Loperamide (By mouth), Acute Diarrhea (ED) Referrals: Austen Murrell MD [Primary Care Provider] - As per Instructions Prescriptions: Ondansetron Odt [Zofran Odt] 4 mg PO Q4PRN #6 tab
[2018-05-18] MEDS ORDERED: ONDANSETRON 4 MG/2 ML VIAL IVP ONE (08:51)
[2018-05-18] MEDS ORDERED: fentaNYL 100 MCG/2 ML INJ IVP ONE (08:51)
[2018-05-18] MEDS ORDERED: NS 1,000 ML IV ONE ×2 (08:51→10:42)
[2018-05-18 09:17] LABS: PLATELET COUNT 170 10^3/uL (150-400)
[2018-05-18] MEDS ORDERED: IOPAMIDOL (ISOVUE 370) 100 ML BTL IV ONE (09:25)
[2018-05-18 10:10] VITALS: BP 146/85
== END 2018-05-18 12:28 | disposition home or self-care (01) ==
DX: R19.7 Diarrhea, unspecified (principal); N20.0 Calculus of kidney; K57.30 Diverticulosis of large intestine without perforation or abscess without bleeding; E11.9 Type 2 diabetes mellitus without complications; J45.909 Unspecified asthma, uncomplicated; M06.9 Rheumatoid arthritis, unspecified; Z86.73 Personal history of transient ischemic attack (TIA), and cerebral infarction without residual deficits; Z79.82 Long term (current) use of aspirin
CPT/HCPCS: 74177; 96361; 96374; 96375; 99285; J2405; J3010; Q9967; 82435-PO; 82565-PO; 82947-PO; 84132-PO; 84295-PO; 84520-PO; 85014-ER

== ENCOUNTER 2018-07-07 16:09 | Emergency (ER) | payer OTHER ==
--- NOTE | 2018-07-07 16:31 | EDPHY ---
H & P Stated Complaint: SOB cough cp and throat pain --dx with bronchitis 3 days ago Time Seen by Provider: 07/07/18 16:31 - Medical/Surgical History Hx Asthma: Yes Hx Chronic Respiratory Disease: No Hx Diabetes: Yes Hx Cardiac Disease: Yes Hx Renal Disease: No Hx Cirrhosis: No Hx Alcoholism: No Hx HIV/AIDS: No Hx Splenectomy or Spleen Trauma: No Other PMH: PMH: RA, immunocompromised, diet controlled diabetes, acid reflux, TIA in 2006, kidney stones. PSH: hernia repair x 2,Lt finger repair - Social History Smoking Status: Never smoked Constitutional: Initial Vital Signs O2 Sat (%) 94 07/07/18 16:09 O2 Delivery Mode Nasal Cannula O2 (L/minute) 3 Allergies/Adverse Reactions: codeine [Codeine] Allergy (Intermediate, Verified 05/18/18 08:10) Rash hydrocodone [Hydrocodone] Allergy (Intermediate, Verified 05/18/18 08:10) Itching hydrocodone bitartrate [From Vicodin] Allergy (Intermediate, Verified 05/18/18 08:10) Rash latex [Latex] Allergy (Intermediate, Verified 05/18/18 08:10) Hives levofloxacin [From Levaquin] Allergy (Intermediate, Verified 05/18/18 08:10) Other-Enter Comments nitrofurantoin [From Macrobid] Allergy (Intermediate, Verified 05/18/18 08:10) Other-Enter Comments nitrofurantoin macrocrystalline [From Macrobid] Allergy (Intermediate, Verified 05/18/18 08:10) Other-Enter Comments oxycodone HCl [From Percocet] Allergy (Intermediate, Verified 05/18/18 08:10) Itching propoxyphene napsylate [From Darvocet-N 100] Allergy (Intermediate, Verified 08:10) Itching clarithromycin Allergy (Mild, Verified 05/18/18 08:10) Other-Enter Comments Sulfa (Sulfonamide Antibiotics) Allergy (Unknown, Verified 05/18/18 08:10) Unknown GLUTEN Allergy (Intermediate, Uncoded 02/12/18 15:35) Other-Enter Comments ISONIAZIDE Allergy (Intermediate, Uncoded 02/12/18 15:35) Other-Enter Comments MILK PROTEIN Allergy (Intermediate, Uncoded 02/12/18 15:35) Other-Enter Comments HAYFEVER Allergy (Mild, Uncoded 02/12/18 15:35) Other-Enter Comments Home Medications: Medication Instructions Recorded Aspirin EC [Aspirin EC 81 mg (*)] 81 mg PO DAILY 02/12/18 Azelastine/Fluticasone [Dymista 1 spray NASAL BID 02/12/18 Nasal [place]] DULoxetine [Cymbalta 60 MG (*)] 60 mg PO DAILY 02/12/18 Esomeprazole Mag Trihydrate 40 mg PO DAILYAC 02/12/18 [Nexium] Gabapentin [Neurontin 300 MG (*)] 600 mg PO BID 02/12/18 Leflunomide 20 mg PO DAILY 02/12/18 Pravastatin Sodium 40 mg PO DAILY 02/12/18 Ranitidine HCl 150 mg PO HS 02/12/18 Acetaminophen [Tylenol 325mg (*)] 650 mg PO Q4HRS PRN tab 02/15/18 Loperamide HCl [Imodium 2 mg (*)] 2 mg PO QID PRN cap 02/15/18 Ondansetron Odt [Zofran Odt 4 mg 4 mg PO Q4HRS PRN #30 tab 02/15/18 (*)] Ondansetron Odt [Zofran Odt] 4 mg PO Q4PRN #6 tab 05/18/18 Orencia 05/18/18 Prednisone 05/18/18 Medical Decision Making - Diagnostics Imaging: I viewed and interpreted images myself ED Course/Re-evaluation: CHIEF COMPLAINT: Shortness of breath, cough HISTORY OF PRESENT ILLNESS: The patient is a 77 y/o female with a history of rheumatoid arthritis (on medication) and is immunocompromised complaining of worsening shortness of breath and a cough. The patient's symptoms started around 4 days ago. She was a physician 2 days ago and was diagnosed with bronchitis. She did not have a chest x-ray or any labs at that time. She was prescribed a Z-pack, but her symptoms have not improved. As her symptoms have not improved, she decided to present to the emergency department. She does use 3L supplemental O2 at night for sleep apnea. She did receive the influenza vaccination this year. No lightheadedness, chest pain, heart palpitations, abdominal pain, urinary or bowel complaints, numbness, paresthesias. REVIEW OF SYSTEMS: A comprehensive 10 system review of systems is otherwise negative aside from elements mentioned in the history of present illness and medical decision making. PHYSICAL EXAM: HR, BP, O2 Sat, RR. Temp noted General Appearance: Alert, well hydrated, appropriate, and non-toxic appearing. Head: Atraumatic without scalp tenderness or obvious injury Eyes: Pupils equal, round, reactive to light and accommodation, EOMI, no trauma , no injection. Ears: Clear bilaterally, no perforation, normal landmarks Nose: Atraumatic, no rhinorrhea, clear. Throat: There is no erythema or exudates, no lesions, normal tonsils, mucus membranes moist. Neck: Supple, 2+ carotid upstroke, nontender, no lymphadenopathy. Respiratory: Coarse rhonchi throughout. No retractions, no distress, no wheezes , and no accessory muscle use. Cardiovascular: Regular rate and rhythm, no murmurs, rubs, or gallops. Bilateral carotid, radial, dorsalis pedis, and posterior tibial pulses intact. Good capillary refill all extremities. Gastrointestinal: Abdomen is soft, nontender, non-distended, no masses, no rebound, no guarding, no peritoneal signs. Musculoskeletal: Normal active ROM of all extremities, atraumatic. Neurological: Alert, appropriate, and interactive. The patient has normal DTRs and non-focal cranial nerves, motor, sensory, and cerebellar exam. Skin: No rashes, good turgor, no nodules on palpation. Past medical history: RA, immunocompromised, diet controlled diabetes, acid reflux, TIA in 2006, kidney stones Past surgical history: Hernia repair, left finger repair Family history: Denies Social history: at bedside, retired, lives in [place] DIAGNOSTICS/PROCEDURES/CRITICAL CARE TIME: Chest x-ray: No signs of pneumonia. DIFFERENTIAL DIAGNOSIS: The differential diagnosis for the patient's shortness of breath and hypoxemia included but was not limited to pneumonia, myocardial infarction, acute mountain sickness, high altitude pulmonary edema, congestive heart failure, and pulmonary embolus. MEDICAL DECISION MAKING: The patient is a 77 y/o female with a history of rheumatoid arthritis (on medication) and is immunocompromised complaining of worsening shortness of breath and a cough after being diagnosed with bronchitis 2 days ago. Her symptoms have not improved after starting a z-myriam. The patient has coarse rhonchi throughout. Labs and chest x-ray ordered. 1710: Patient is requesting cough medicine; Robitussin administered. 1727: Patient is requesting a breathing treatment; DuoNeb administered. 1759: Patient is influenza A positive. 1800: Reassessed patient and discussed laboratory and imaging studies. I have prescribed her Tamiflu as she is immunocompromised. I have also prescribed her a hydrocodone elixir as her cough is causing her the most pain. She will take Benadryl with this as hydrocodone causes her to itch; she is comfortable with this. Return precautions provided; patient is comfortable with this plan. - Data Points Laboratory Results: Laboratory Results 07/07/18 16:35 07/07/18 16:35 07/07/18 07/07/18 07/07/18 16:45 16:35 16:35 WBC RBC Hgb Hct MCV MCH MCHC RDW Plt Count MPV Neut % (Auto) Lymph % (Auto) [place] % (Auto) Eos % (Auto) Baso % (Auto) Nucleat RBC Rel Count Absolute Neuts (auto) Absolute Lymphs (auto) Absolute Monos (auto) Absolute Eos (auto) Absolute Basos (auto) Absolute Nucleated RBC Immature Gran % Immature Gran # Platelet Estimate PT 11.7 SEC L SEC (12.0-15.0) INR 0.89 (0.83-1.16) APTT 27.5 SEC SEC (23.0-38.0) VBG Lactic Acid Sodium 138 mEq/L mEq/L (135-145) Potassium 3.6 mEq/L mEq/L (3.5-5.2) Chloride 105 mEq/L mEq/L (97-110) Carbon Dioxide 23 mEq/l mEq/l (22-31) Anion Gap 10 mEq/L mEq/L (6-14) BUN 22 mg/dL mg/dL (7-23) Creatinine 0.8 mg/dL mg/dL (0.6-1.0) Estimated GFR > 60 Glucose 96 mg/dL mg/dL (70-100) Calcium 9.5 mg/dL mg/dL (8.5-10.4) Total Bilirubin 0.8 mg/dL mg/dL (0.1-1.4) Nasal Influenza A PCR FLU A DETECTED H (NEGATIVE) Nasal Influenza B PCR NEGATIVE FOR FLU B (NEGATIVE) RSV (PCR) NEGATIVE FOR RSV (NEGATIVE) 07/07/18 07/07/18 16:35 16:35 WBC 4.11 10^3/uL 10^3/uL (3.80-9.50) RBC 4.48 10^6/uL 10^6/uL (4.18-5.33) Hgb 14.3 g/dL g/dL (12.6-16.3) Hct 44.4 % % (38.0-47.0) MCV 99.1 fL fL (81.5-99.8) MCH 31.9 pg pg (27.9-34.1) MCHC 32.2 g/dL L g/dL (32.4-36.7) RDW 12.6 % % (11.5-15.2) Plt Count 167 10^3/uL 10^3/uL (150-400) MPV 12.1 fL H fL (8.7-11.7) Neut % (Auto) Pending Lymph % (Auto) Pending [place] % (Auto) Pending Eos % (Auto) Pending Baso % (Auto) Pending Nucleat RBC Rel Count Pending Absolute Neuts (auto) Pending Absolute Lymphs (auto) Pending Absolute Monos (auto) Pending Absolute Eos (auto) Pending Absolute Basos (auto) Pending Absolute Nucleated RBC Pending Immature Gran % Pending Immature Gran # Pending Platelet Estimate Pending PT INR APTT VBG Lactic Acid 1.0 mmol/L mmol/L (0.7-2.1) Sodium Potassium Chloride Carbon Dioxide Anion Gap BUN Creatinine Estimated GFR Glucose Calcium Total Bilirubin Nasal Influenza A PCR Nasal Influenza B PCR RSV (PCR) Medications Given: Discontinued Medications Albuterol/Ipratropium (Duoneb) 3 ml EDNOW ONE Stop: 07/07/18 17:28 Last Admin: 07/07/18 17:30 Dose: 3 ml Departure - Departure Disposition: Home, Routine, Self-Care Clinical Impression: Flu Acute bronchitis Qualifiers: Bronchitis organism: other organism Qualified Code(s): J20.8 - Acute bronchitis due to other specified organisms Condition: Good Instructions: Influenza (ED), Acute Bronchitis (ED) Additional Instructions: 1. Use ibuprofen and Tylenol as needed for fever and body aches. 2. Follow up with your primary care physician within 72 hours for reevaluation. 3. Drink plenty of fluids. 4. Return to the emergency department immediately for high fever, severe headache or neck pain, difficulty breathing, abdominal pain, rash or other worsening of condition. 5. Take Hydrocodone elixir as prescribed. Make sure to take Benadryl with this. 6. Take Tamiflu as prescribed. Referrals: Austen Murrell MD [Primary Care Provider] - As per Instructions Report Scribed for: Trenton Ray Report Scribed by: Sarah Tolentino Date of Report: 07/07/18 Time of Report: 16:32
[2018-07-07] MEDS ORDERED: GUAIFENESIN/DM 10 ML UDCUP PO ONE (17:10)
[2018-07-07 17:14] LABS: PLATELET COUNT 167 10^3/uL (150-400)
[2018-07-07] MEDS ORDERED: IPRATROPIUM/ALBUTEROL 3 ML DEYVIAL IH ONE (17:27)
[2018-07-07 17:29] LABS: INR 0.89 (0.83-1.16); PROTIME(PATIENT) 11.7 SEC (12.0-15.0)
[2018-07-07] MEDS ORDERED: OSELTAMIVIR PHOSPHATE 75 MG CAP PO ONE (18:04)
[2018-07-07 18:27] VITALS: BP 152/90
== END 2018-07-07 18:25 | disposition home or self-care (01) ==
DX: J20.8 Acute bronchitis due to other specified organisms (principal); J10.1 Influenza due to other identified influenza virus with other respiratory manifestations; E11.9 Type 2 diabetes mellitus without complications

== ENCOUNTER 2018-08-30 14:56 | Emergency (ER) | payer OTHER ==
[2018-08-30] MEDS ORDERED: NS 500 ML IV ONE ×2 (16:45→17:34)
--- NOTE | 2018-08-30 16:56 | EDPHY ---
H & P Time Seen by Provider: 08/30/18 16:39 HPI/ROS: HPI Right flank pain. 77-year-old female by private vehicle with her . This patient has a prior history of kidney stones. She presents to the emergency department with complaint of persistent right-sided flank pain onset 2 days ago. Somewhat worse today. Described as an aching and cramping sensation. Similar to the pain she has had in the past with kidney stones. No fever. She has had some mild nausea but no vomiting. No gross hematuria. No history of trauma. ROS: Constitutional: No fever, no chills. No weakness. Eyes: No discharge. No changes in vision. ENT: No sore throat. No nasal congestion or rhinorrhea. Respiratory: No cough. No shortness of breath. Cardiac: No chest pain, no palpitations. Gastrointestinal: No abdominal pain, no vomiting, no diarrhea. Genitourinary: No hematuria. No dysuria or increased frequency with urination. Musculoskeletal: As above. No neck pain. No myalgias or arthralgias. Skin: No rashes. Neurological: No headache. No focal weakness or altered sensation. Past medical history: Rheumatoid arthritis, immunocompromise, acid reflux, TIA in 2006, kidney stones, hernia repair x2, diet-controlled diabetes. Primary care physician is Dr. Jono Marcial. Social history: Nonsmoker. She is here with her and her dog. Physical Exam: General Appearance: Alert, she is not in distress. This patient is responding to questions appropriately and in full sentences. This patient appears well- hydrated and well-nourished. Eyes: Pupils equal and round no pallor or injection. No lid edema, erythema or injection. Respiratory: There are no retractions, lungs are clear to auscultation with good air movement bilaterally. Cardiovascular: Regular rate and rhythm. No murmur. Gastrointestinal: Abdomen is soft and nontender, no masses, bowel sounds normal. No focal tenderness at McBurney's point. No Mayes sign. Neurological: Motor sensory function is grossly intact. Cranial nerves are normal. Gait is normal. Skin: Warm and dry, no rashes. Musculoskeletal: Neck is supple and nontender. Right-sided CVA tenderness on palpation. No left-sided CVA tenderness on palpation. Extremities are symmetrical. All joints range without pain or impingement. Psychiatric: No agitation. No depression. Database: EKG: Imaging: CT abdomen and pelvis without contrast: No obstructive uropathy. She does have kidney stones on the left side but none on the right side. She is fairly constipated with a significant amount of stool in the right colon. Gallbladder is well visualized and is normal. Results discussed with staff radiologist Dr. Antoni Burns. Procedures: Emergency department course: Triage vital signs reviewed and are unremarkable. IV was placed. She was placed on a monitor. She was started on IV normal saline with 500 cc to be given over the next hour. She will be given IV Zofran and IV hydromorphone as needed for pain. She and her asked me if we could order an ESR and CRP from the emergency department. She was actually supposed to obtain this today but came to the emergency department instead. Her primary care physician had ordered the studies. This will be done as well as a part of her workup. CT imaging to evaluate for ureterolithiasis to be obtained. Patient and her endorse workup. 6:00 p.m., the patient was re-evaluated, resting comfortably at this time. Results of her CT scan and diagnostic workup were discussed with her and her . Repeat abdominal exam is unremarkable. I discussed the possible etiology of constipation concerning her right flank discomfort. She feels comfortable going home at this time and I feel she is safe for discharge. I will send her home with a bottle of magnesium citrate to treat her constipation. She has follow-up with her primary care physician early next week. Return to emergency department precautions were discussed with the 2 of them thoroughly. All their questions were answered. The patient was discharged home in good condition. Differential Diagnosis: The differential diagnosis on this patient includes but is not limited to constipation, ureterolithiasis, cholecystitis, pyelonephritis, musculoskeletal etiology. This represents a partial list of diagnoses considered. These considerations are based on history, physical exam, past history, reassessment and diagnostic testing. Smoking Status: Never smoked Constitutional: Initial Vital Signs Temperature (C) 36.7 C 08/30/18 15:02 Heart Rate 82 08/30/18 15:02 Respiratory Rate 16 08/30/18 15:02 Blood Pressure 131/76 H 08/30/18 15:02 O2 Sat (%) 93 08/30/18 15:02 O2 Delivery Mode Room Air Allergies/Adverse Reactions: codeine [Codeine] Allergy (Intermediate, Verified 08/30/18 15:01) Rash hydrocodone [Hydrocodone] Allergy (Intermediate, Verified 08/30/18 15:01) Itching hydrocodone bitartrate [From Vicodin] Allergy (Intermediate, Verified 08/30/18 15:01) Rash latex [Latex] Allergy (Intermediate, Verified 08/30/18 15:01) Hives levofloxacin [From Levaquin] Allergy (Intermediate, Verified 08/30/18 15:01) Other-Enter Comments nitrofurantoin [From Macrobid] Allergy (Intermediate, Verified 08/30/18 15:01) Other-Enter Comments nitrofurantoin macrocrystalline [From Macrobid] Allergy (Intermediate, Verified 08/30/18 15:01) Other-Enter Comments oxycodone HCl [From Percocet] Allergy (Intermediate, Verified 08/30/18 15:01) Itching propoxyphene napsylate [From Darvocet-N 100] Allergy (Intermediate, Verified 01/10 15:01) Itching clarithromycin Allergy (Mild, Verified 08/30/18 15:01) Other-Enter Comments Sulfa (Sulfonamide Antibiotics) Allergy (Unknown, Verified 08/30/18 15:01) Unknown GLUTEN Allergy (Intermediate, Uncoded 08/30/18 15:01) Other-Enter Comments ISONIAZIDE Allergy (Intermediate, Uncoded 08/30/18 15:01) Other-Enter Comments MILK PROTEIN Allergy (Intermediate, Uncoded 08/30/18 15:01) Other-Enter Comments HAYFEVER Allergy (Mild, Uncoded 08/30/18 15:01) Other-Enter Comments Home Medications: Medication Instructions Recorded Aspirin EC [Aspirin EC 81 mg (*)] 81 mg PO DAILY 02/12/18 Azelastine/Fluticasone [Dymista 1 spray NASAL BID 02/12/18 Nasal [place]] DULoxetine [Cymbalta 60 MG (*)] 60 mg PO DAILY 02/12/18 Esomeprazole Mag Trihydrate 40 mg PO DAILYAC 02/12/18 [Nexium] Gabapentin [Neurontin 300 MG (*)] 600 mg PO BID 02/12/18 Leflunomide 20 mg PO DAILY 02/12/18 Pravastatin Sodium 40 mg PO DAILY 10/22/18 Ranitidine HCl 150 mg PO HS 02/12/18 Acetaminophen [Tylenol 325mg (*)] 650 mg PO Q4HRS PRN tab 02/15/18 Loperamide HCl [Imodium 2 mg (*)] 2 mg PO QID PRN cap 02/15/18 Ondansetron Odt [Zofran Odt 4 mg 4 mg PO Q4HRS PRN #30 tab 02/15/18 (*)] Ondansetron Odt [Zofran Odt] 4 mg PO Q4PRN #6 tab 05/18/18 Orencia 05/18/18 Prednisone 05/18/18 HYDROcodone/HOMATROPINE HYCODA 1 tsp PO Q4-6PRN PRN #120 ml 07/07/18 [Hycodan Syrup (RX)] Medical Decision Making - Diagnostics Imaging Results: Imaging Impressions Abdomen/Pelvis CT 08/30/18 16:51 Impression: 1. Nephrolithiasis without obstructive uropathy. 2. Query constipation. Diverticulosis without diverticulitis. 3. Anterior abdominal wall hernia containing only fat. 4. See above report for additional findings. Results called and discussed with William Liu MD on 08/30/2018 at 17: 42. - Data Points Laboratory Results: Laboratory Results 08/30/18 17:00 08/30/18 17:00 08/30/18 08/30/18 08/30/18 17:00 17:00 15:10 WBC 6.07 10^3/uL 10^3/uL (3.80-9.50) RBC 4.41 10^6/uL 10^6/uL (4.18-5.33) Hgb 13.6 g/dL g/dL (12.6-16.3) Hct 41.6 % % (38.0-47.0) MCV 94.3 fL fL (81.5-99.8) MCH 30.8 pg pg (27.9-34.1) MCHC 32.7 g/dL g/dL (32.4-36.7) RDW 13.7 % % (11.5-15.2) Plt Count 160 10^3/uL 10^3/uL (150-400) MPV 11.9 fL H fL (8.7-11.7) Neut % (Auto) 81.1 % H % (39.3-74.2) Lymph % (Auto) 11.5 % L % (15.0-45.0) [place] % (Auto) 6.3 % % (4.5-13.0) Eos % (Auto) 0.3 % L % (0.6-7.6) Baso % (Auto) 0.5 % % (0.3-1.7) Nucleat RBC Rel Count 0.0 % % (0.0-0.2) Absolute Neuts (auto) 4.92 10^3/uL 10^3/uL (1.70-6.50) Absolute Lymphs (auto) 0.70 10^3/uL L 10^3/uL (1.00-3.00) Absolute Monos (auto) 0.38 10^3/uL 10^3/uL (0.30-0.80) Absolute Eos (auto) 0.02 10^3/uL L 10^3/uL (0.03-0.40) Absolute Basos (auto) 0.03 10^3/uL 10^3/uL (0.02-0.10) Absolute Nucleated RBC 0.00 10^3/uL 10^3/uL (0-0.01) Immature Gran % 0.3 % % (0.0-1.1) Immature Gran # 0.02 10^3/uL 10^3/uL (0.00-0.10) ESR 14 MM/HR MM/HR (0-30) Sodium 135 mEq/L mEq/L (135-145) Potassium 4.2 mEq/L mEq/L (3.5-5.2) Chloride 106 mEq/L mEq/L (97-110) Carbon Dioxide 24 mEq/l mEq/l (22-31) Anion Gap 5 mEq/L L mEq/L (6-14) BUN 37 mg/dL H mg/dL (7-23) Creatinine 0.7 mg/dL mg/dL (0.6-1.0) Estimated GFR > 60 Glucose 127 mg/dL H mg/dL (70-100) Calcium 8.9 mg/dL mg/dL (8.5-10.4) Total Bilirubin 0.5 mg/dL mg/dL (0.1-1.4) Conjugated Bilirubin 0.4 mg/dL mg/dL (0.0-0.5) Unconjugated Bilirubin 0.1 mg/dL mg/dL (0.0-1.1) AST 19 IU/L IU/L (14-46) ALT 32 IU/L IU/L (9-52) Alkaline Phosphatase 55 IU/L IU/L (38-126) C-Reactive Protein 13.1 mg/L H mg/L (<10.0) Total Protein 6.0 g/dL L g/dL (6.3-8.2) Albumin 3.6 g/dL g/dL (3.5-5.0) Urine Color YELLOW Urine Appearance CLEAR Urine pH 5.0 (5.0-7.5) Ur Specific [place] 1.024 (1.002-1.030) Urine Protein NEGATIVE (NEGATIVE) Urine Ketones NEGATIVE (NEGATIVE) Urine Blood NEGATIVE (NEGATIVE) Urine Nitrate NEGATIVE (NEGATIVE) Urine Bilirubin NEGATIVE (NEGATIVE) Urine Urobilinogen NEGATIVE EU EU (0.2-1.0) Ur Leukocyte Esterase NEGATIVE (NEGATIVE) Urine Glucose NEGATIVE (NEGATIVE) Medications Given: Discontinued Medications Sodium Chloride (Ns) 500 mls @ 0 mls/hr IV EDNOW ONE; Wide Open PRN Reason: Protocol Stop: 08/30/18 16:46 Last Admin: 08/30/18 16:56 Dose: 500 mls Sodium Chloride (Ns) 500 mls @ 0 mls/hr IV ONCE ONE PRN Reason: Wide Open Stop: 08/30/18 17:35 Last Admin: 08/30/18 17:38 Dose: 500 mls Ketorolac Tromethamine (Toradol) 30 mg IVP EDNOW ONE Stop: 08/30/18 17:35 Last Admin: 08/30/18 17:37 Dose: 30 mg Departure - Departure Disposition: Home, Routine, Self-Care Clinical Impression: Right flank pain, Constipation Condition: Good Instructions: Constipation (ED), High Fiber Diet (ED), Flank Pain (ED) Additional Instructions: Read and follow provided instructions. Follow-up with your primary care physician as scheduled early next week for re- evaluation. Your primary care physician will have access to the results of all of your testing here in the emergency department today. Magnesium citrate: Drink entire contents of bottle for treatment of constipation. Be near a bathroom. Return to the emergency department for worsening pain, fever, vomiting or other serious concerns. Referrals: Austen Murrell MD [Primary Care Provider] - As per Instructions
[2018-08-30 17:13] LABS: PLATELET COUNT 160 10^3/uL (150-400)
[2018-08-30] MEDS ORDERED: KETOROLAC 30 MG/1 ML SDV IVP ONE (17:34)
[2018-08-30] MEDS ORDERED: KETOROLAC 30 MG/1 ML SDV ONE (17:35)
[2018-08-30] MEDS ORDERED: MAGNESIUM CITRATE 300 ML BOTTLE PO ONE (18:09)
[2018-08-30 18:30] VITALS: BP 135/70
== END 2018-08-30 18:30 | disposition home or self-care (01) ==
DX: R10.31 Right lower quadrant pain (principal); K59.00 Constipation, unspecified; E11.9 Type 2 diabetes mellitus without complications; M06.9 Rheumatoid arthritis, unspecified; Z86.73 Personal history of transient ischemic attack (TIA), and cerebral infarction without residual deficits
CPT/HCPCS: 74176; 96374; 99285; J1885

== ENCOUNTER 2018-09-23 13:39 | Emergency (ER) | payer OTHER | END 2018-09-23 17:33 | disposition home or self-care (01) ==

== ENCOUNTER → 2018-10-04 | Outpatient (CLI) | payer OTHER | LOC: BMCIMAGING 14:08 ==

== ENCOUNTER 2018-10-15 10:17 | Inpatient (IN) | payer OTHER | END 2018-10-17 14:22 | disposition home or self-care (01) | LOC: F1N 13:48 ==